=== PATIENT | female | born 1980 | race Caucasian/White ===

== ENCOUNTER 2017-12-06 12:25 | Outpatient (CLI) | payer BC ==
[2017-12-06] MEDS ORDERED: BETAMET ACET-BETAMETH SOD PHOS 6 MG/ML VIAL IM SCH (13:00)
[2017-12-06 13:31] VITALS: BP 121/64; PULSE 100; RESP 16; TEMP 97.5
--- NOTE | 2017-12-07 11:21 | P.MSEPDOC ---
Presenting Problems - Arrival Data Date of Arrival on Unit: 12/06/17 Time of Arrival on Unit: 12:30 Mode of Transport: Ambulatory - Complaint OB-Reason for Admission/Chief Complaint: Other Comment: repeat celestone shot Medical History - Information : 3 Para: 2 Term: 2 : 0 Abortions: Spontaneous or Elective: 0 Number of Living Children: 2 - Gestational Age Gestational Age by GABBI (wks/days): 35 Weeks and 5 Days - History Complications: Other Comment: baby with cardiac issues. deliverying at [facility] Review of Systems - Review of Systems Constitutional: No problems Breast: No problems ENT: No problems Cardiovascular: No problems Respiratory: No problems Gastrointestinal: No problems Genitourinary: No problems Musculoskeletal: No problems Neurological: No problems Skin: No problems Vital Signs - Temperature Temperature: 97.5 F Temperature Source: Tympanic - Pulse Right Radial Pulse Rate: 100 Pulse Assessment Method: Automatic Cuff - Respirations Respiratory Rate: 16 Oxygen Delivery Method: Room Air - Blood Pressure Right Arm Blood Pressure: 121/64 Blood Pressure Mean: 83 Blood Pressure Source: Automatic Cuff Medical Screen Scoring (Pre) - Cervical Exam Dilation: Exam Deferred - Uterine Contractions Frequency: N/A - Maternal Vital Signs Maternal Temperature: N/A Maternal Blood Pressure: N/A Signs of Preeclampsia: N/A Maternal Respirations: N/A - Pain Assessment Pain Scale Used: Numeric (1 - 10) Pain Intensity: 0 - Maternal Trauma Maternal Trauma: N/A - Assessment Baseline FHR: 125 Heart Rate - NICHD Category: Category I (Normal) = 0 NST: Reactive Position: N/A Station: N/A - Total Score Total Score (Pre): 0 - Level of Risk Level of Risk: N/A Physician Notification (Pre) - Physician Notified Physician Notified Date: 12/06/17 Physician Notified Time: 13:00 Physician/Practitioner Notifed:: cherelle Spoke With: cherelle New Order Received: Yes (discharge) Disposition - Disposition OB Disposition: Discharge to home, Written follow up instructions reviewed Discharge Date: 12/06/17 Discharge Time: 13:05 I agree with the RN Medical Screening Exam: Yes Risk & Benefit of care provided described in d/c instruction: Yes Diagnosis: ENCOUNTER FOR SCREENING FOR CONGENITAL CARDIAC ABNLT
== END 2017-12-06 13:05 | disposition home or self-care (01) ==
LOC: FBPOP 12:25
PROVIDERS: ATTEND Obstetrics & Gynecology
DX: Z36.83 Encounter for fetal screening for congenital cardiac abnormalities (principal); Z3A.35 35 weeks gestation of pregnancy
CPT/HCPCS: 59025; 99213; 96372; J0702

== ENCOUNTER → 2017-12-10 | Outpatient (CLI) | payer BC ==
[2017-12-10 09:56] LABS: HCT 34.4 % (34.0-46.0); HGB 11.3 gm/dL (11.4-16.0); MCH 29.3 pg (25.0-35.0); MCHC 32.8 g/dL (31.0-37.0); MCV 89.3 fL (80.0-100.0); Platelet Count 298 k/uL (150-450); RBC 3.86 m/uL (3.80-5.40); RDW 14.4 % (11.5-15.5); WBC 9.6 k/uL (3.8-10.6)
[2017-12-10 17:19] LABS: HIV AB P24 Non-Reactive (Non-Reactive); HIV P24 AG Non-Reactive (Non-Reactive)
== END | disposition home or self-care (01) ==
LOC: LABWHC1 09:11
PROVIDERS: ATTEND Obstetrics & Gynecology
DX: O26.813 Pregnancy related exhaustion and fatigue, third trimester (principal); Z3A.00 Weeks of gestation of pregnancy not specified
CPT/HCPCS: 36415; 85027; 87390

== ENCOUNTER → 2018-01-27 | Outpatient (CLI) | payer BC ==
[2018-01-27 09:38] LABS: Basophils % (A) 0 %; Eosinophils # (A) 0.2 k/uL (0-0.7); Eosinophils % (A) 3 %; HGB 11.7 gm/dL (11.4-16.0); Lymphocytes # (A) 1.1 k/uL (1.0-4.8); Lymphocytes % (A) 18 %; MCH 28.2 pg (25.0-35.0); MCHC 31.7 g/dL (31.0-37.0); Mean Platelet Volume 7.2; Monocytes # (A) 0.2 k/uL (0-1.0); Monocytes % (A) 4 %; Neutrophils # (A) 4.6 k/uL (1.3-7.7); Neutrophils % (A) 74 %; Platelet Count 260 k/uL (150-450); RBC 4.16 m/uL (3.80-5.40); RDW 13.6 % (11.5-15.5); WBC 6.2 k/uL (3.8-10.6)
== END | disposition home or self-care (01) ==
LOC: LABPAT 08:51
PROVIDERS: ATTEND Obstetrics & Gynecology
DX: Z01.812 Encounter for preprocedural laboratory examination (principal)
CPT/HCPCS: 36415; 85025

== ENCOUNTER 2018-02-03 06:02 | Day surgery (SDC) | payer BC ==
[2018-01-30 15:26] VITALS: BMI 36.3
--- NOTE | 2018-02-02 20:19 | P.HPOB ---
History of Present Illness H&P Date: 02/02/18 Chief Complaint: Family planning This is a 37-year-old female 3 para 3 who presents for laparoscopic bilateral tubal ligation via fulguration. She recently delivered her last child vaginally. She has consented to laparoscopic bilateral tubal ligation via fulguration. Obstetrical history: . History of 3 vaginal deliveries. Gynecologic history: No history of sexually transmitted diseases. Social history: She is . 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 Review of Systems Constitutional: Denies chills, Denies fever Eyes: denies blurred vision, denies pain Ears, nose, mouth and throat: Denies headache, Denies sore throat Cardiovascular: Denies chest pain, Denies shortness of breath Respiratory: Denies cough Gastrointestinal: Denies abdominal pain, Denies diarrhea, Denies nausea, Denies vomiting Genitourinary: Denies dysuria, Denies hematuria Musculoskeletal: Denies myalgias Integumentary: Denies pruritus, Denies rash Neurological: Denies numbness, Denies weakness Psychiatric: Denies anxiety, Denies depression Endocrine: Denies fatigue, Denies weight change Past Medical History Past Medical History: No Reported History History of Any Multi-Drug Resistant Organisms: None Reported Past Surgical History: Appendectomy Additional Past Surgical History / Comment(s): KIDNEY STONE -REMOVED Additional Past Anesthesia/Blood Transfusion Reaction / Comment(s): "STATES FELT SHORT OF BREATH WHEN SHE WOKE UP" Past Psychological History: No Psychological Hx Reported Smoking Status: Former smoker Past Alcohol Use History: None Reported Past Drug Use History: None Reported - Past Family History Mother Family Medical History: No Reported History Medications and Allergies Home Medications Medication Instructions Recorded Confirmed Type Acetaminophen [Tylenol] 325 mg PO Q4H PRN 12/06/17 01/30/18 History Cholecalciferol (Vitamin D3) 2,000 unit PO PC-BRKFST 12/06/17 01/30/18 History [Vitamin D3] Control Pill-28 Unknown 1 tab PO HS 01/30/18 History Allergies Allergy/AdvReac Type Severity Reaction Status Date / Time cephalexin Allergy Anaphylaxis Verified 01/30/18 13:46 Penicillins Allergy Anaphylaxis Verified 01/30/18 13:46 Exam Osteopathic Statement: *. No significant issues noted on an osteopathic structural exam other than those noted in the History and Physical/Consult. HEENT: Within normal limits Heart: Regular rate and rhythm Lungs: Clear to auscultation bilaterally Abdomen: Soft, nontender Pelvic exam: Uterus is anteverted, nontender, with no adnexal masses or tenderness noted. Extremities: Negative Homans Assessment and Plan (1) Family planning Status: Acute Code(s): Z30.09 - ENCOUNTER FOR OT GENERAL CNSL AND ADVICE ON CONTRACEPTION SNOMED Code(s): 170351030 Plan: Proceed with laparoscopic bilateral tubal ligation via fulguration. I have discussed the risks, benefits, and alternative therapies for the above- mentioned procedure and for both sedation/anesthesia as well as necessary blood products administration, if indicated, as they pertain to this patient. The patient has indicated her understanding and acceptance of the risks and procedures discussed.
[~2018-02-03 06:02] MED LIST: DEXAMETHASONE SOD PHOSPHATE 10 MG/ML 1 ML VIAL IV ONE; LACTATED RINGERS 1,000 ML IV SCH; MIDAZOLAM 2 MG/2 ML VIAL IV PRN; ONDANSETRON 4 MG/2 ML VIAL IVP ONE; Pre Op ABX Message 1 EACH MISC MISCELLANE ONE; SCOPOLAMINE 1.5MG/72HR PATCH TRANSDERM ONE
[2018-02-03] MEDS ORDERED: LIDOCAINE 1% 20 ML VIAL (10MG/ML) FOR IV START INTRADERMA ONE (06:45)
[2018-02-03] MEDS ORDERED: ROCURONIUM BROMIDE 10 MG/ML 10 ML VIAL IV ONE (07:29)
[2018-02-03] MEDS ORDERED: ACETAMINOPHEN IV (For NPO) 1,000 MG/100 ML VIAL ONE (07:29)
[2018-02-03] MEDS ORDERED: LIDOCAINE 1% INJ 10MG/ML (20 ML MDV) ONE (07:29)
[2018-02-03] MEDS ORDERED: MIDAZOLAM 2 MG/2 ML VIAL ONE (07:29)
[2018-02-03] MEDS ORDERED: BUPIVACAINE (PF) 0.25% 30 ML VIAL SQ ONE (07:29)
[2018-02-03] MEDS ORDERED: PROPOFOL 10 MG/ML 20 ML VIAL IV ONE (07:29)
[2018-02-03] MEDS ORDERED: SUCCINYLCHOLINE CHLORIDE 100 MG/5 ML SYR IV ONE (07:29)
[2018-02-03] MEDS ORDERED: fentaNYL (PF) 50 MCG/ML 2 ML AMP ONE (07:29)
[2018-02-03] MEDS ORDERED: NEOSTIGMINE 1 MG/ML 10 ML VIAL ONE (07:29)
[2018-02-03] MEDS ORDERED: GLYCOPYRROLATE 0.2 MG/ML 2 ML VIAL ONE (07:29)
[2018-02-03] MEDS ORDERED: HYDROmorphone (PF) 1 MG/ML ONE (07:29)
[2018-02-03] MEDS ORDERED: KETOROLAC 30 MG/ML 1 ML VIAL ONE (07:29)
--- NOTE | 2018-02-03 08:08 | P.OP ---
Date of Procedure: 02/03/18 Preoperative Diagnosis: Family planning Postoperative Diagnosis: Same Procedure(s) Performed: Laparoscopic bilateral tubal ligation via fulguration Anesthesia: LINNEA Surgeon: Amanda Gonzalez Estimated Blood Loss (ml): 5 Pathology: none sent Condition: stable Disposition: same day Indications for Procedure: This is a 37-year-old female 3 para 3 who presents for laparoscopic bilateral tubal ligation via fulguration. She recently delivered her last child vaginally. She has consented to laparoscopic bilateral tubal ligation via fulguration. Operative Findings: Uterus is anteverted and sounded to 9 cm. Normal uterus tubes and ovaries are noted. There are noted to be some adhesions above the liver edge. Description of Procedure: The patient is taken to the operating room where she is placed in the dorsal lithotomy position. She is prepped and draped in the normal sterile fashion. Examination is performed under anesthesia. Uterus is found to be in a anteverted position. No adnexal masses were palpated. Next a bivalve speculum was placed in the patient's vagina. A single-tooth tenaculum was used to grasp the anterior lip of the cervix. The uterus was sounded to 9 cm. The kroner uterine manipulator was then inserted through the cervix and the balloon was inflated. The single-tooth tenaculum is removed speculum was removed gloves were changed and attention was turned to the abdomen. The infraumbilical fold was grasped in transverse fashion with 2 Allis clamps. A small transverse incision was made with a scalpel. A hemostat was used to carry the incision down to the underlying layer of fascia. A towel clip was placed above the umbilicus for retraction. A 11 mm disposable bladeless trocar was then inserted into the peritoneal cavity under direct visualization. The towel clip did slip off one time and did scratch her skin superficially. The towel clip was replaced with a new towel clip. Once inside, pneumoperitoneum was achieved with CO2 gas. The insert was removed and the camera was placed. Intraperitoneal placement was confirmed. No bleeding was noted. Next the patient was placed in Trendelenburg position. A small stab incision was made suprapubically and a 5 mm disposable bladeless trocar was inserted into the peritoneal cavity under direct visualization. Once inside pelvic contents were inspected. Next a bipolar Kleppinger instrument was placed through the inferior trocar and the midportion of each tube was brought away from other structures and completely fulgurated on approximate 2-3 cm segment of each tube. Excellent hemostasis was noted. A picture was taken. There were also noted to be some adhesions above the liver edge. A picture of this was taken. Pneumoperitoneum was released after the inferior trocar was removed under direct visualization. The upper trocar was then removed. The fascial incision was closed with 0 Vicryl suture in interrupted [id number] stitch. The skin incisions were then closed with 4-0 Vicryl suture in a subcuticular fashion. Incision sites were injected with quarter percent Marcaine. Bacitracin ointment was placed on the scratch above her umbilicus and a Band- Aid was placed. Next the kroner uterine manipulator was removed. Minimal bleeding was noted. All sponge and needle counts are correct. The patient is then taken to recovery room in stable condition.
[2018-02-03 08:26] VITALS: TEMP 97.9
[2018-02-03] MEDS: MORPHINE SULFATE 4 MG/ML SYRINGE IV PRN ×2 (08:34→08:42)
[2018-02-03] MEDS: MEPERIDINE 50 MG/ML SYRINGE IVP ONE ×2 (08:47→08:56)
[2018-02-03 09:16] VITALS: RESP 18
[2018-02-03] MEDS ORDERED: Acetaminophen-Codeine 300-30mg TAB PO ONE (09:36)
[2018-02-03 11:13] VITALS: BP 115/57; PULSE 80
== END 2018-02-03 12:00 | disposition home or self-care (01) ==
LOC: OR 06:02
PROVIDERS: ATTEND Obstetrics & Gynecology
DX: Z30.2 Encounter for sterilization (principal); Z79.3 Long term (current) use of hormonal contraceptives; Z88.1 Allergy status to other antibiotic agents; Z88.0 Allergy status to penicillin
CPT/HCPCS: 81025; 58670; J2250; J2270; J1100; J2710; J2175; J2405; J2001; J3010; J1885; J1170; J0131; J0330; J2704

== ENCOUNTER 2018-02-04 03:28 | Emergency (ER) | payer BC ==
[2018-02-04] MEDS ORDERED: MORPHINE SULFATE 4 MG/ML SYRINGE IV STA ×2 (04:22→05:39)
[2018-02-04 04:50] LABS: Basophils % (A) 0 %; Eosinophils % (A) 0 %; HCT 34.7 % (34.0-46.0); HGB 11.2 gm/dL (11.4-16.0); Lymphocytes # (A) 1.4 k/uL (1.0-4.8); Lymphocytes % (A) 14 %; MCHC 32.2 g/dL (31.0-37.0); MCV 86.9 fL (80.0-100.0); Mean Platelet Volume 7.5; Monocytes # (A) 0.4 k/uL (0-1.0); Monocytes % (A) 4 %; Neutrophils # (A) 8.3 k/uL (1.3-7.7); Neutrophils % (A) 81 %; Platelet Count 286 k/uL (150-450); RBC 3.99 m/uL (3.80-5.40); WBC 10.3 k/uL (3.8-10.6)
[2018-02-04 05:09] LABS: Appearance,Urine Cloudy (Clear); Bacteria,Urine Rare /hpf; Bilirubin,Urine Negative (Negative); Blood,Urine Large (Negative); Color,Urine Light Red; Glucose,Urine (UA) Negative (Negative); Ketones,Urine Negative (Negative); Leukocyte Esterase,Urine Moderate (Negative); Mucus,Urine Rare /hpf; PH, Urine 5.5 (5.0-8.0); Protein,Urine Trace (Negative); RBC,Urine >182 /hpf (0-5); Specific Gravity,Urine 1.012 (1.001-1.035); Squamous Epithelial Cell,Urine 10 /hpf (0-4); Urobilinogen,Urine <2.0 mg/dL (<2.0); WBC,Urine 26 /hpf (0-5)
[2018-02-04 05:11] LABS: ALT 36 U/L (9-52); AST 18 U/L (14-36); Alkaline Phosphatase 86 U/L (38-126); Amylase 41 U/L (30-110); Anion Gap 10 mmol/L; Blood Urea Nitrogen 12 mg/dL (7-17); Calcium 9.7 mg/dL (8.4-10.2); Carbon Dioxide 25 mmol/L (22-30); Chloride 104 mmol/L (98-107); Glucose 110 mg/dL (74-99); Lipase 63 U/L (23-300); Potassium 3.8 mmol/L (3.5-5.1); Sodium 139 mmol/L (137-145); Total Bilirubin 0.2 mg/dL (0.2-1.3); Total Protein 7.1 g/dL (6.3-8.2)
--- NOTE | 2018-02-04 05:22 | XR ---
EXAM: XR Abdomen, 1 View CLINICAL HISTORY: ITS.REASON XR Reason: abdominal pain TECHNIQUE: Frontal supine view of the abdomen/pelvis. COMPARISON: None. FINDINGS: Lower thorax: Findings most compatible with free intraperitoneal air under the right hemidiaphragm. Gastrointestinal tract: Unremarkable. No dilation. Bones/joints: Unremarkable. IMPRESSION: Findings most compatible with free intraperitoneal air under the right hemidiaphragm. Confirmation with CT advised. [employer] 02/04/18 05:25 Call Doctor Regarding Bowel Perforation with Free Air, called Dr. Burroughs on 02/04 05:24 (-05:00)
--- NOTE | 2018-02-04 07:20 | ED ---
Abdominal Pain HPI - General Chief Complaint: Abdominal Pain Stated Complaint: post op pain Time Seen by Provider: 02/04/18 03:48 Source: patient Mode of arrival: ambulatory Limitations: no limitations - History of Present Illness Initial Comments: This patient is a 37-year-old woman who presents to be evaluated for abdominal pain going on for the past day. The patient states that she had a tubal ligation is today with Dr. Gonzalez. She went home and states that she never really was feeling much better. She states she had previous laparoscopic surgery for appendix and it just didn't causes same kind of pain as this. She states she has not been able to sleep for most tonight and as she was not having relief with home medicines presents here. Patient denies fever or chills , dyspnea, headache, neck, or chest pain. No change in urination. MD Complaint: abdominal pain Onset/Timin -: days(s) Location: diffuse Radiation: back Migration to: no migration Severity: severe - Related Data Home Medications Medication Instructions Recorded Confirmed Cholecalciferol (Vitamin D3) 2,000 unit PO PC-BRKFST 12/06/17 02/04/18 [Vitamin D3] Control Pill-28 Unknown 1 tab PO HS 01/30/18 02/04/18 Previous Rx's Medication Instructions Recorded Acetaminophen-Codeine 300-30mg 1 tab PO Q4H PRN #20 tablet 02/03/18 [Tylenol #3] Allergies Allergy/AdvReac Type Severity Reaction Status Date / Time cephalexin Allergy Anaphylaxis Verified 02/03/18 06:29 Penicillins Allergy Anaphylaxis Verified 02/03/18 06:29 Review of Systems ROS Statement: Those systems with pertinent positive or pertinent negative responses have been documented in the HPI. ROS Other: All systems not noted in ROS Statement are negative. Constitutional: Denies: fever, chills, weakness Respiratory: Denies: cough, dyspnea Cardiovascular: Denies: chest pain, palpitations, edema, syncope Gastrointestinal: Reports: abdominal pain. Denies: nausea, vomiting, diarrhea Genitourinary: Denies: dysuria, hematuria Musculoskeletal: Reports: back pain Skin: Denies: rash Neurological: Denies: headache, weakness Past Medical History Past Medical History: No Reported History History of Any Multi-Drug Resistant Organisms: None Reported Past Surgical History: Appendectomy, Tubal Ligation Additional Past Surgical History / Comment(s): Kidney stone removal Past Psychological History: No Psychological Hx Reported Smoking Status: Former smoker Past Alcohol Use History: None Reported Past Drug Use History: None Reported General Exam Limitations: no limitations General appearance: alert, in no apparent distress Head exam: Present: atraumatic, normocephalic Eye exam: Present: normal appearance. Absent: scleral icterus, conjunctival injection ENT exam: Present: normal oropharynx Neck exam: Present: normal inspection, full ROM Respiratory exam: Present: normal lung sounds bilaterally. Absent: respiratory distress, wheezes, rales, rhonchi, stridor Cardiovascular Exam: Present: regular rate, normal rhythm, normal heart sounds. Absent: systolic murmur, diastolic murmur, rubs, gallop GI/Abdominal exam: Present: soft, tenderness (There is mild lower abdominal tenderness without rebound or guarding.), normal bowel sounds. Absent: distended, guarding, rebound, rigid, mass, pulsatile mass, hernia Extremities exam: Present: normal inspection, normal capillary refill. Absent: pedal edema, calf tenderness Back exam: Present: normal inspection. Absent: CVA tenderness (R), CVA tenderness (L) Neurological exam: Present: alert, normal gait Skin exam: Present: warm, dry, intact, normal color. Absent: rash Course Vital Signs 02/04/18 02/04/18 03:29 07:40 Temperature 98.2 F 98.1 F Pulse Rate 71 52 L Respiratory 20 18 Rate Blood Pressure 147/73 138/65 O2 Sat by Pulse 98 97 Oximetry Medical Decision Making - Medical Decision Making Patient's 37-year-old woman with postoperative pain following a tubal ligation. She is improved following the medications. I did discuss the patient's case with Dr. Gonzalez, who will see the patient follow-up. We discussed appropriate further care and return parameters and all questions answered. - Lab Data Result diagrams: 02/04/18 04:35 02/04/18 04:35 Lab Results 02/04/18 02/04/18 02/04/18 Range/Units 04:35 04:35 04:35 WBC 10.3 (3.8-10.6) k/uL RBC 3.99 (3.80-5.40) m/uL Hgb 11.2 L (11.4-16.0) gm/dL Hct 34.7 (34.0-46.0) % MCV 86.9 (80.0-100.0) fL MCH 28.0 (25.0-35.0) pg MCHC 32.2 (31.0-37.0) g/dL RDW 14.0 (11.5-15.5) % Plt Count 286 (150-450) k/uL Neutrophils % 81 % Lymphocytes % 14 % Monocytes % 4 % Eosinophils % 0 % Basophils % 0 % Neutrophils # 8.3 H (1.3-7.7) k/uL Lymphocytes # 1.4 (1.0-4.8) k/uL Monocytes # 0.4 (0-1.0) k/uL Eosinophils # 0.0 (0-0.7) k/uL Basophils # 0.0 (0-0.2) k/uL Sodium 139 (137-145) mmol/L Potassium 3.8 (3.5-5.1) mmol/L Chloride 104 (98-107) mmol/L Carbon Dioxide 25 (22-30) mmol/L Anion Gap 10 mmol/L BUN 12 (7-17) mg/dL Creatinine 0.60 (0.52-1.04) mg/dL Est GFR (CKD-EPI)AfAm >90 (>60 ml/min/1.73 sqM) Est GFR (CKD-EPI)NonAf >90 (>60 ml/min/1.73 sqM) Glucose 110 H (74-99) mg/dL Calcium 9.7 (8.4-10.2) mg/dL Total Bilirubin 0.2 (0.2-1.3) mg/dL AST 18 (14-36) U/L ALT 36 (9-52) U/L Alkaline Phosphatase 86 (38-126) U/L Total Protein 7.1 (6.3-8.2) g/dL Albumin 4.0 (3.5-5.0) g/dL Amylase 41 (30-110) U/L Lipase 63 (23-300) U/L Urine Color Light Red Urine Appearance Cloudy H (Clear) Urine pH 5.5 (5.0-8.0) Ur Specific [place] 1.012 (1.001-1.035) Urine Protein Trace H (Negative) Urine Glucose (UA) Negative (Negative) Urine Ketones Negative (Negative) Urine Blood Large H (Negative) Urine Nitrite Negative (Negative) Urine Bilirubin Negative (Negative) Urine Urobilinogen <2.0 (<2.0) mg/dL Ur Leukocyte Esterase Moderate H (Negative) Urine RBC >182 H (0-5) /hpf Urine WBC 26 H (0-5) /hpf Ur Squamous Epith Cells 10 H (0-4) /hpf Urine Bacteria Rare H (None) /hpf Urine Mucus Rare H (None) /hpf Disposition Clinical Impression: Abdominal pain Disposition: HOME SELF-CARE Condition: Fair Instructions: Abdominal Pain (ED) Referrals: Nonstaff,Physician [Primary Care Provider] - 1-2 days Amanda Gonzalez DO [Doctor of Osteopathic Medicine] - 1-2 days
[2018-02-04] MEDS ORDERED: SIMETHICONE 40 MG/0.6 ML DROPS 2,000 MG/30 ML BOTTLE PO STA (07:30)
[2018-02-04 07:42] VITALS: BP 138/65; PULSE 52; RESP 18; TEMP 98.1
[2018-02-04] MEDS ORDERED: SIMETHICONE 40 MG/0.6 ML DROPS 2,000 MG/30 ML BOTTLE PO SCH (08:30)
[2018-02-04] MEDS ORDERED: KETOROLAC 30 MG/ML 1 ML VIAL IVP SCH (12:00)
== END 2018-02-04 08:07 | disposition home or self-care (01) ==
LOC: EC 03:28
DX: R10.9 Unspecified abdominal pain (principal); G89.18 Other acute postprocedural pain; Z90.49 Acquired absence of other specified parts of digestive tract; Z98.51 Tubal ligation status; Z87.891 Personal history of nicotine dependence; Z79.3 Long term (current) use of hormonal contraceptives; Z88.1 Allergy status to other antibiotic agents; Z88.0 Allergy status to penicillin
CPT/HCPCS: 36415; 80053; 82150; 83690; 85025; 81001; 74018; 99284; 96374; 96375; 96376; J2270; J1885

== ENCOUNTER 2018-04-09 20:40 | Emergency (ER) | payer BC ==
[2018-04-09 20:46] VITALS: BP 146/73; PULSE 90; RESP 16; TEMP 97.9
--- NOTE | 2018-04-09 21:35 | ED ---
General Adult HPI - General Chief complaint: Back Pain/Injury Stated complaint: back pain Time Seen by Provider: 04/09/18 20:57 Source: patient, RN notes reviewed Mode of arrival: ambulatory Limitations: no limitations - History of Present Illness Initial comments: 37-year-old female presents to the emergency department for a chief complaint of chronic low back pain. Patient states the pain has been somewhat worse for the past week. Patient denies any injuries. Patient states she is out of her [place] and that is why she is here. She states that she had a baby and has not had a prescription of [place] for a year. She states she has stopped breast- feeding now and wants a prescription. She states she cannot get into her doctor for 3 weeks. Patient states she went to urgent care and was given a steroid but they refused to prescribe narcotics. Patient then presented to the ER for pain prescription. Patient denies bladder or bowel changes. Patient denies saddle anesthesia or pain radiating down her legs. She states the pain is mostly in the left lower back. patient states she has had multiple x-rays and does not need one today. Patient has no other complaints at this time including shortness of breath, chest pain, abdominal pain, nausea or vomiting, headache, or visual changes. - Related Data Home Medications Medication Instructions Recorded Confirmed Acetaminophen [Tylenol Extra 1,000 mg PO Q6H PRN 04/09/18 04/09/18 Strength] Beyaz-28 1 tab PO HS 04/09/18 04/09/18 Ergocalciferol (Vitamin D2) 50,000 unit PO BEAVERS 04/09/18 04/09/18 [Vitamin D2] Ibuprofen [Motrin Ib] 600 mg PO Q6H PRN 04/09/18 04/09/18 Allergies Allergy/AdvReac Type Severity Reaction Status Date / Time cephalexin Allergy Anaphylaxis Verified 04/09/18 21:02 Penicillins Allergy Anaphylaxis Verified 04/09/18 21:02 Review of Systems ROS Statement: Those systems with pertinent positive or pertinent negative responses have been documented in the HPI. ROS Other: All systems not noted in ROS Statement are negative. Past Medical History Past Medical History: No Reported History History of Any Multi-Drug Resistant Organisms: None Reported Past Surgical History: Appendectomy, Tubal Ligation Additional Past Surgical History / Comment(s): Kidney stone removal Past Psychological History: No Psychological Hx Reported Smoking Status: Former smoker Past Alcohol Use History: None Reported Past Drug Use History: None Reported General Exam Limitations: no limitations General appearance: alert, in no apparent distress Eye exam: Present: normal appearance, PERRL, EOMI. Absent: scleral icterus, conjunctival injection, periorbital swelling Respiratory exam: Present: normal lung sounds bilaterally. Absent: respiratory distress, wheezes, rales, rhonchi, stridor Cardiovascular Exam: Present: regular rate, normal rhythm, normal heart sounds. Absent: systolic murmur, diastolic murmur, rubs, gallop, clicks Back exam: Present: tenderness (Lower left paraspinal tenderness.), paraspinal tenderness (Left sided lower paraspinal tenderness.). Absent: full ROM (60 flexion and full extension.), CVA tenderness (R), CVA tenderness (L), vertebral tenderness (No vertebral tenderness from neck down through lumbar spine.) Neurological exam: Present: alert, oriented X3, CN II-XII intact Psychiatric exam: Present: normal affect, normal mood Course Vital Signs 04/09/18 20:43 Temperature 97.9 F Pulse Rate 90 Respiratory 16 Rate Blood Pressure 146/73 O2 Sat by Pulse 94 L Oximetry Medical Decision Making - Medical Decision Making 37-year-old female presents to the emergency department for a chief complaint of chronic back pain for which she is seeking a pain prescription. Patient takes [place]. She had a baby so has not had a prescription and a year but would like to start taking it. She states her back pain has worsened in the past 1.5 weeks. Denies any injury. She has been imaged multiple times. Patient states she is taking Motrin and Tylenol and is not helping. She has a appointment in 3 weeks scheduled with her doctor. Patient states she takes [place] and is here for a [place] prescription. She went to urgent care but they would not prescribe it. Patient denies any bladder or bowel changes. Patient denies any numbness or tingling in the legs. On exam patient has 60 of flexion and full extension. No spinal tenderness. Patient does have some left lower paraspinal tenderness. Patient was told that we could not give her a prescription of [place] or any other narcotics. She already has a prescription of steroids from urgent care. I offered to give her a shot of Toradol but she did not want that. Patient will follow up with primary care provider. She will return if symptoms worsen. Disposition Clinical Impression: Chronic back pain Disposition: HOME SELF-CARE Condition: Good Instructions: Chronic Back Pain (ED) Additional Instructions: Please continue to take Motrin and Tylenol for pain relief. Continue steroid. Contact your primary care provider and follow up in 1-2 days. Otherwise return to the emergency department if symptoms worsen. Is patient prescribed a controlled substance at d/c from ED?: No Referrals: Slade Bingham MD [Primary Care Provider] - 1-2 days Time of Disposition: 21:35
== END 2018-04-09 21:39 | disposition home or self-care (01) ==
LOC: EC 20:40
DX: G89.29 Other chronic pain (principal); M54.5 Low back pain; Z87.891 Personal history of nicotine dependence; Z79.899 Other long term (current) drug therapy; Z88.0 Allergy status to penicillin; Z88.1 Allergy status to other antibiotic agents
CPT/HCPCS: 99283

== ENCOUNTER → 2018-08-12 | Outpatient (CLI) | payer BC ==
--- NOTE | 2018-08-12 15:18 | US ---
EXAMINATION TYPE: US pelvic complete DATE OF EXAM: 08/12/2018 COMPARISON: NONE CLINICAL HISTORY: 37-year-old female N92.1 Excessive and frequent menstruation. TECHNIQUE: Transabdominal sonographic images of the pelvis were acquired. Date of LMP: 08-07-18 FINDINGS: EXAM MEASUREMENTS: Uterus: 11.4 x 4.3 x 4.6 cm Endometrial Stripe: 0.5 cm Right Ovary: 2.9 x 2.1 x 2.1 cm Left Ovary: 2.6 x 2.1 x 2.1 cm Follicular change in both ovaries. 1. Uterus: Slightly prominent in size, anteverted. No focal fibroid identified. 2. Endometrium: wnl 3. Right Ovary: wnl 4. Left Ovary: wnl 5. Bilateral Adnexa: wnl 6. Posterior cul-de-sac: wnl IMPRESSION: Follicular change in both ovaries. Uterine measurement is slightly prominent. No pelvic free fluid. T hin endometrial stripe.
[2018-08-12 15:35] LABS: T4, Free (Free Thyroxine) 0.98 ng/dL (0.78-2.19)
== END | disposition home or self-care (01) ==
LOC: RADUSWWP 14:28
PROVIDERS: ATTEND Obstetrics & Gynecology
DX: N92.1 Excessive and frequent menstruation with irregular cycle (principal)
CPT/HCPCS: 76856; 84439; 84443

== ENCOUNTER → 2018-10-26 | Outpatient (CLI) | payer BC ==
[2018-10-26 09:16] LABS: Basophils % (A) 0 %; Eosinophils # (A) 0.1 k/uL (0-0.7); Eosinophils % (A) 3 %; Lymphocytes # (A) 1.3 k/uL (1.0-4.8); Lymphocytes % (A) 21 %; MCH 29.4 pg (25.0-35.0); MCHC 33.3 g/dL (31.0-37.0); MCV 88.2 fL (80.0-100.0); Mean Platelet Volume 6.9; Monocytes # (A) 0.2 k/uL (0-1.0); Monocytes % (A) 4 %; Neutrophils # (A) 4.2 k/uL (1.3-7.7); Neutrophils % (A) 71 %; Platelet Count 212 k/uL (150-450); RBC 4.76 m/uL (3.80-5.40); RDW 13.6 % (11.5-15.5); WBC 5.9 k/uL (3.8-10.6)
[2018-10-26 09:23] LABS: ALT 20 U/L (9-52); AST 14 U/L (14-36); Albumin 4.4 g/dL (3.5-5.0); Albumin/Globulin Ratio 1.3; Alkaline Phosphatase 73 U/L (38-126); Anion Gap 7 mmol/L; Blood Urea Nitrogen 14 mg/dL (7-17); Calcium 9.4 mg/dL (8.4-10.2); Carbon Dioxide 25 mmol/L (22-30); Chloride 108 mmol/L (98-107); Cholesterol 218 mg/dL (<200); Globulin 3.3 g/dL; Glucose 97 mg/dL (74-99); HDL Cholesterol 50 mg/dL (40-60); LDL Cholesterol,Calculated 150 mg/dL (0-99); Potassium 4.6 mmol/L (3.5-5.1); Sodium 140 mmol/L (137-145); Total Bilirubin 0.5 mg/dL (0.2-1.3); Total Protein 7.7 g/dL (6.3-8.2); Triglycerides 91 mg/dL (<150)
[2018-10-26 09:38] LABS: T4, Free (Free Thyroxine) 1.04 ng/dL (0.78-2.19)
[2018-10-26 17:13] LABS: Hemoglobin A1C 5.1 % (4.0-6.0)
== END | disposition home or self-care (01) ==
LOC: LABWHC1 08:36
PROVIDERS: ATTEND Family Medicine
DX: I10 Essential (primary) hypertension (principal); Z79.899 Other long term (current) drug therapy
CPT/HCPCS: 36415; 80053; 80061; 83036; 84439; 84443; 85025

== ENCOUNTER → 2018-11-25 | Outpatient (CLI) | payer BC ==
--- NOTE | 2018-11-25 11:00 | XR ---
EXAMINATION TYPE: XR knee complete RT DATE OF EXAM: 11/25/2018 CLINICAL HISTORY: Chronic right knee pain. TECHNIQUE: Three views of the right knee are obtained. COMPARISON: None. FINDINGS: There is no acute fracture/dislocation evident in right knee. Tibial condylar spurring is present. There is mild narrowing and spurring patellofemoral compartment. Mild narrowing medial tibio femoral compartment is also noted. The overlying soft tissue appears unremarkable. IMPRESSION: As above.
== END | disposition home or self-care (01) ==
LOC: RADXRMAIN 10:04
PROVIDERS: ATTEND Family Medicine
DX: M25.761 Osteophyte, right knee (principal); M25.861 Other specified joint disorders, right knee

== ENCOUNTER 2018-12-26 20:00 | Emergency (ER) | payer BC ==
[2018-12-27 04:40] LABS: Creatine Kinase 130 U/L (30-135); Creatine Kinase MB 0.9 ng/mL (0.0-2.4); Troponin I <0.012 ng/mL (0.000-0.034)
[2018-12-27 04:41] LABS: ALT 21 U/L (9-52); AST 16 U/L (14-36); Albumin 3.8 g/dL (3.5-5.0); Alkaline Phosphatase 62 U/L (38-126); Anion Gap 8 mmol/L; Blood Urea Nitrogen 9 mg/dL (7-17); Carbon Dioxide 25 mmol/L (22-30); Chloride 106 mmol/L (98-107); Glucose 90 mg/dL (74-99); Potassium 3.9 mmol/L (3.5-5.1); Sodium 139 mmol/L (137-145); Total Bilirubin 0.3 mg/dL (0.2-1.3); Total Protein 6.7 g/dL (6.3-8.2)
[2018-12-27 07:13] LABS: Basophils % (A) 1 %; Eosinophils # (A) 0.2 k/uL (0-0.7); Eosinophils % (A) 3 %; HCT 38.4 % (34.0-46.0); HGB 12.2 gm/dL (11.4-16.0); Lymphocytes # (A) 1.8 k/uL (1.0-4.8); Lymphocytes % (A) 26 %; MCH 28.9 pg (25.0-35.0); MCHC 31.7 g/dL (31.0-37.0); MCV 91.3 fL (80.0-100.0); Mean Platelet Volume 7.1; Monocytes # (A) 0.3 k/uL (0-1.0); Monocytes % (A) 5 %; Neutrophils # (A) 4.6 k/uL (1.3-7.7); Neutrophils % (A) 65 %; Platelet Count 223 k/uL (150-450); RBC 4.21 m/uL (3.80-5.40); WBC 7.1 k/uL (3.8-10.6)
--- NOTE | 2018-12-27 09:32 | XR ---
EXAMINATION TYPE: Chest 2 views DATE OF EXAM: 12/26/2018 COMPARISON: None HISTORY: 38-year-old female with chest pain FINDINGS: Heart normal size. Aorta and pulmonary vasculature within normal limits. Mild interstitial prominence as a chronic appearance. No consolidation or pleural effusion. IMPRESSION: Chronic appearing changes. No acute process seen.
== END 2018-12-27 02:40 | disposition home or self-care (01) ==
LOC: EC 20:00
DX: R07.9 Chest pain, unspecified (principal); F41.9 Anxiety disorder, unspecified; Z79.3 Long term (current) use of hormonal contraceptives; Z79.899 Other long term (current) drug therapy; Z88.0 Allergy status to penicillin
CPT/HCPCS: 36415; 71046; 80053; 82550; 82553; 84484; 85025; 85379; 96374; 96375; 99285

== ENCOUNTER → 2019-04-15 | Outpatient (CLI) | payer BC ==
--- NOTE | 2019-04-15 12:00 | MM ---
Reason for exam: screening (asymptomatic). Baseline mammogram. History: Took hormonal contraceptives for 8 years beginning at age 29. Physical Findings: Nurse did not find any significant physical abnormalities on exam. MG 3D Screening Mammo W/Cad Bilateral CC and MLO view(s) were taken. There are scattered fibroglandular densities. Finding: There is an equal density (isodense) mass in the upper outer quadrant of the right breast. These results were verbally communicated with the patient and result sheet given to the patient on 04/15/19. ASSESSMENT: Incomplete: need additional imaging evaluation, BI-RAD 0 RECOMMENDATION: Special view mammogram of the right breast.
--- NOTE | 2019-04-15 12:01 | MM ---
Reason for exam: additional evaluation requested from abnormal screening. History: Took hormonal contraceptives for 8 years beginning at age 29. Physical Findings: Breast exam preformed at baseline screening. MG 3D Work Up W/Cad RT Spot compression CC, spot compression MLO, and LM view(s) were taken of the right breast. There are scattered fibroglandular densities. Benign appearing bilateral calcifications. These results were verbally communicated with the patient and result sheet given to the patient on 04/15/19. ASSESSMENT: Probably benign, BI-RAD 3 RECOMMENDATION: Follow-up diagnostic mammogram of the right breast in 6 months.
== END | disposition home or self-care (01) ==
LOC: RADMAMWWP 10:55
PROVIDERS: ATTEND Obstetrics & Gynecology
DX: Z12.31 Encounter for screening mammogram for malignant neoplasm of breast (principal); R92.8 Other abnormal and inconclusive findings on diagnostic imaging of breast
CPT/HCPCS: 77061; 77063; 77065; 77067

== ENCOUNTER 2019-05-07 00:14 | Emergency (ER) | payer BC ==
[2019-05-07] MEDS ORDERED: SODIUM CHLORIDE 0.9% 1,000 ML IV STA (00:46)
[2019-05-07 01:05] LABS: Basophils % (A) 0 %; Eosinophils # (A) 0.4 k/uL (0-0.7); Eosinophils % (A) 4 %; HCT 36.7 % (34.0-46.0); HGB 12.3 gm/dL (11.4-16.0); Lymphocytes # (A) 2.2 k/uL (1.0-4.8); Lymphocytes % (A) 23 %; MCH 29.9 pg (25.0-35.0); MCHC 33.5 g/dL (31.0-37.0); MCV 89.3 fL (80.0-100.0); Mean Platelet Volume 7.5; Monocytes # (A) 0.4 k/uL (0-1.0); Monocytes % (A) 4 %; Neutrophils # (A) 6.5 k/uL (1.3-7.7); Neutrophils % (A) 69 %; Platelet Count 229 k/uL (150-450); RBC 4.11 m/uL (3.80-5.40); RDW 14.6 % (11.5-15.5); WBC 9.5 k/uL (3.8-10.6)
[2019-05-07] MEDS ORDERED: MECLIZINE 12.5 MG TAB PO STA (01:08)
--- NOTE | 2019-05-07 01:14 | CT ---
EXAM: CT Head Without Intravenous Contrast CLINICAL HISTORY: ITS.REASON CT Reason: Pain TECHNIQUE: Axial computed tomography images of the head/brain without intravenous contrast. This CT exam was performed using one or more of the following dose reduction techniques: automated exposure control, adjustment of the mA and/or kV according to patient size, and/or use of iterative reconstruction technique. COMPARISON: No relevant prior studies available. FINDINGS: Brain: No hemorrhage. No edema. Ventricles: Unremarkable. No ventriculomegaly. Bones/joints: No acute fracture. Soft tissues: Unremarkable. Sinuses: No fluid levels. Mastoid air cells: Unremarkable as visualized. No mastoid effusion. IMPRESSION: No acute intracranial findings
[2019-05-07 01:17] LABS: ALT 16 U/L (9-52); AST 18 U/L (14-36); African American GFR (CKD) >90 (>60 ml/min/1.73 sqM); Albumin 4.2 g/dL (3.5-5.0); Alkaline Phosphatase 69 U/L (38-126); Anion Gap 8 mmol/L; Blood Urea Nitrogen 21 mg/dL (7-17); Calcium 9.3 mg/dL (8.4-10.2); Carbon Dioxide 23 mmol/L (22-30); Chloride 108 mmol/L (98-107); Glucose 95 mg/dL (74-99); Potassium 4.2 mmol/L (3.5-5.1); Sodium 139 mmol/L (137-145); Total Bilirubin 0.3 mg/dL (0.2-1.3); Total Protein 7.1 g/dL (6.3-8.2)
[2019-05-07 01:58] VITALS: RESP 19
[2019-05-07 01:58] LABS: Appearance,Urine Clear (Clear); Bilirubin,Urine Negative (Negative); Blood,Urine Negative (Negative); Color,Urine Colorless; Glucose,Urine (UA) Negative (Negative); Ketones,Urine Negative (Negative); Leukocyte Esterase,Urine Negative (Negative); Nitrite,Urine Negative (Negative); Protein,Urine Negative (Negative); Specific Gravity,Urine 1.008 (1.001-1.035); Urobilinogen,Urine <2.0 mg/dL (<2.0)
--- NOTE | 2019-05-07 02:14 | ED ---
General Adult HPI - General Source: patient, RN notes reviewed, old records reviewed Mode of arrival: ambulatory Limitations: no limitations <Isaias Marquez - Last Filed: 05/07/19 02:22> <Annabel Muniz - Last Filed: 05/07/19 02:39> - General Chief complaint: Dizziness Stated complaint: Dizziness Time Seen by Provider: 05/07/19 00:29 - History of Present Illness Initial comments: 38-year-old female patient with no pertinent past history, status post tubal ligation presents to ED for complaint of approximate 4 days of waxing and waning dizziness. Patient words that she feels as if the room is spinning about her. Patient also reports some mild waxing and waning bitemporal headaches. Patient denies headache right now. Patient denies recent malaise, thunderclap onset, nuchal rigidity. Patient denies any auditory sensations. Patient denies any chest pain shortness of breath abdominal pain. Systemic: Pt denies fatigue, fever/chills, rash. Pt denies weakness, night sweats, weight loss. Neuro: Pt denies headache, visual disturbances, syncope or pre-syncope. HEENT: Pt denies ocular discharge or irritation, otalgia, rhinorrhea, pharyngitis or notable lymphadenopathy. Cardiopulmonary: Pt denies chest pain, SOB, heart palpitations, dyspnea on exertion. Abdominal/GI: Pt denies abdominal pain, n/v/d. : Pt denies dysuria, burning w/ urination, frequency/urgency. Denies new onset urinary or bowel incontinence. MSK: Pt denies myalgia, loss of strength or function in extremities. Neuro: Pt denies new onset weakness, paresthesias. (Isaias Marquez) - Related Data Home Medications Medication Instructions Recorded Confirmed Acetaminophen [Tylenol Extra 1,000 mg PO Q6H PRN 04/09/18 04/09/18 Strength] Beyaz-28 1 tab PO HS 04/09/18 04/09/18 Ergocalciferol (Vitamin D2) 50,000 unit PO BEAVERS 04/09/18 04/09/18 [Vitamin D2] Ibuprofen [Motrin Ib] 600 mg PO Q6H PRN 04/09/18 04/09/18 Previous Rx's Medication Instructions Recorded Meclizine [Antivert] 25 mg PO Q6H PRN #20 tab 05/07/19 Allergies Allergy/AdvReac Type Severity Reaction Status Date / Time cephalexin Allergy Anaphylaxis Verified 05/07/19 00:26 Penicillins Allergy Anaphylaxis Verified 05/07/19 00:26 Review of Systems ROS Other: All systems not noted in ROS Statement are negative. <Isaias Marquez Zachary - Last Filed: 05/07/19 02:22> ROS Other: All systems not noted in ROS Statement are negative. <Annabel Muniz - Last Filed: 05/07/19 02:39> ROS Statement: Those systems with pertinent positive or pertinent negative responses have been documented in the HPI. Past Medical History Past Medical History: No Reported History History of Any Multi-Drug Resistant Organisms: None Reported Past Surgical History: Appendectomy, Tubal Ligation Additional Past Surgical History / Comment(s): Kidney stone removal Past Psychological History: No Psychological Hx Reported Smoking Status: Current every day smoker Past Alcohol Use History: None Reported Past Drug Use History: None Reported <AlmaIsaias J - Last Filed: 05/07/19 02:22> General Exam Limitations: no limitations <Isaias Marquez - Last Filed: 05/07/19 02:22> - General Exam Comments Initial Comments: Constitutional: NAD, AOX3, Pt has pleasant affect. HEENT: NC/AT, trachea midline, neck supple, no lymphadenopathy. Posterior pharynx non erythematous, without exudates. External ears appear normal, without discharge. TMs are clifton bilaterally, no bulging, no erythema, no perforation. Mucous membranes moist. Eyes PERRLA, EOM intact. There is no scleral icterus. No pallor noted. Cardiopulmonary: RRR, no murmurs, rubs or gallops, no JVD noted. Lungs CTAB in anterior and posterior quinn. No peripheral edema. Abdominal exam: Abdomen soft and non-distended. Abdomen non-tender to palpation in all 4 quadrants. Bowel sounds active in LLQ. No hepatosplenomegaly. No ecchymosis Neuro: CN II-XII intact. No nuchal rigidity. No raccon eyes, no merrill sign, no hemotympanum. No cervical spinal tenderness. NIH 0. No nystagmus. MSK: No posterior calf tenderness bilaterally, homans sign negative bilaterally. Posterior tibialis and radial pulse +2 bilaterally. Sensation intact in upper and lower extremities. Full active ROM in upper and lower extremities, 5/5 stregnth. (Isaias Marquez) Course Vital Signs 05/07/19 05/07/19 00:24 01:56 Temperature 98.2 F Pulse Rate 68 62 Respiratory 18 19 Rate Blood Pressure 123/76 103/75 O2 Sat by Pulse 100 98 Oximetry Medical Decision Making - Lab Data Result diagrams: 05/07/19 00:52 05/07/19 00:52 - EKG Data -: EKG Interpreted by Me (and dr muniz) <Iasias Marquez - Last Filed: 05/07/19 02:22> - Lab Data Result diagrams: 05/07/19 00:52 05/07/19 00:52 <Annabel Muniz - Last Filed: 05/07/19 02:39> - Medical Decision Making 38-year-old female patient with no pertinent past history, status post tubal ligation presents to ED for complaint of approximate 4 days of waxing and waning dizziness. Patient words that she feels as if the room is spinning about her. Patient also reports some mild waxing and waning bitemporal headaches. Patient denies headache right now. Patient denies recent malaise, thunderclap onset, nuchal rigidity. Patient denies any auditory sensations. Patient denies any chest pain shortness of breath abdominal pain. Patient vital signs stable, afebrile. Physical exam did not display acute pathology, neurologic exam within normal limits and a dysuria. No nystagmus. Laboratory investigations revealed nonspecific CBC, CMP, UA. CT brain revealed no acute process. Patient administered meclizine with minimal improvement. EKG not concerning for acute ischemia. Patient will be discharged with neurology follow-up. Case discussed with Dr. Muniz. (Isaias Marquez) I was available for consultation in the emergency department. The history and physical exam were done by the midlevel provider. I was consulted for this patient's care. I reviewed the case with the midlevel provider and based on their presentation of the patient, I agree with the assessment, medical decision making and plan of care as documented. Chart was dictated using [employer] dictation software. Attempts were made to correct any dictation errors however some typographical errors may persist. (Annabel Muniz) - Lab Data Lab Results 05/07/19 05/07/19 05/07/19 Range/Units 00:52 00:52 00:52 WBC 9.5 (3.8-10.6) k/uL RBC 4.11 (3.80-5.40) m/uL Hgb 12.3 (11.4-16.0) gm/dL Hct 36.7 (34.0-46.0) % MCV 89.3 (80.0-100.0) fL MCH 29.9 (25.0-35.0) pg MCHC 33.5 (31.0-37.0) g/dL RDW 14.6 (11.5-15.5) % Plt Count 229 (150-450) k/uL Neutrophils % 69 % Lymphocytes % 23 % Monocytes % 4 % Eosinophils % 4 % Basophils % 0 % Neutrophils # 6.5 (1.3-7.7) k/uL Lymphocytes # 2.2 (1.0-4.8) k/uL Monocytes # 0.4 (0-1.0) k/uL Eosinophils # 0.4 (0-0.7) k/uL Basophils # 0.0 (0-0.2) k/uL Sodium 139 (137-145) mmol/L Potassium 4.2 (3.5-5.1) mmol/L Chloride 108 H (98-107) mmol/L Carbon Dioxide 23 (22-30) mmol/L Anion Gap 8 mmol/L BUN 21 H (7-17) mg/dL Creatinine 0.49 L (0.52-1.04) mg/dL Est GFR (CKD-EPI)AfAm >90 (>60 ml/min/1.73 sqM) Est GFR (CKD-EPI)NonAf >90 (>60 ml/min/1.73 sqM) Glucose 95 (74-99) mg/dL Calcium 9.3 (8.4-10.2) mg/dL Magnesium 1.9 (1.6-2.3) mg/dL Total Bilirubin 0.3 (0.2-1.3) mg/dL AST 18 (14-36) U/L ALT 16 (9-52) U/L Alkaline Phosphatase 69 (38-126) U/L Total Protein 7.1 (6.3-8.2) g/dL Albumin 4.2 (3.5-5.0) g/dL Urine Color Urine Appearance (Clear) Urine pH (5.0-8.0) Ur Specific [place] (1.001-1.035) Urine Protein (Negative) Urine Glucose (UA) (Negative) Urine Ketones (Negative) Urine Blood (Negative) Urine Nitrite (Negative) Urine Bilirubin (Negative) Urine Urobilinogen (<2.0) mg/dL Ur Leukocyte Esterase (Negative) 05/07/19 Range/Units 01:49 WBC (3.8-10.6) k/uL RBC (3.80-5.40) m/uL Hgb (11.4-16.0) gm/dL Hct (34.0-46.0) % MCV (80.0-100.0) fL MCH (25.0-35.0) pg MCHC (31.0-37.0) g/dL RDW (11.5-15.5) % Plt Count (150-450) k/uL Neutrophils % % Lymphocytes % % Monocytes % % Eosinophils % % Basophils % % Neutrophils # (1.3-7.7) k/uL Lymphocytes # (1.0-4.8) k/uL Monocytes # (0-1.0) k/uL Eosinophils # (0-0.7) k/uL Basophils # (0-0.2) k/uL Sodium (137-145) mmol/L Potassium (3.5-5.1) mmol/L Chloride (98-107) mmol/L Carbon Dioxide (22-30) mmol/L Anion Gap mmol/L BUN (7-17) mg/dL Creatinine (0.52-1.04) mg/dL Est GFR (CKD-EPI)AfAm (>60 ml/min/1.73 sqM) Est GFR (CKD-EPI)NonAf (>60 ml/min/1.73 sqM) Glucose (74-99) mg/dL Calcium (8.4-10.2) mg/dL Magnesium (1.6-2.3) mg/dL Total Bilirubin (0.2-1.3) mg/dL AST (14-36) U/L ALT (9-52) U/L Alkaline Phosphatase (38-126) U/L Total Protein (6.3-8.2) g/dL Albumin (3.5-5.0) g/dL Urine Color Colorless Urine Appearance Clear (Clear) Urine pH 5.0 (5.0-8.0) Ur Specific [place] 1.008 (1.001-1.035) Urine Protein Negative (Negative) Urine Glucose (UA) Negative (Negative) Urine Ketones Negative (Negative) Urine Blood Negative (Negative) Urine Nitrite Negative (Negative) Urine Bilirubin Negative (Negative) Urine Urobilinogen <2.0 (<2.0) mg/dL Ur Leukocyte Esterase Negative (Negative) - EKG Data EKG Comments: Ventricular rate 67, patient: 48, QRS 80, QT/QTC 302/414. Normal sinus rhythm, cannot rule out anterior infarct. No signs of acute ischemia at this time. (Isaias Marquez) Disposition Is patient prescribed a controlled substance at d/c from ED?: No <Isaias Marquez - Last Filed: 05/07/19 02:22> <Annabel Muniz - Last Filed: 05/07/19 02:39> Clinical Impression: Dizziness Disposition: HOME SELF-CARE Condition: Stable Instructions (If sedation given, give patient instructions): Dizziness (ED) Additional Instructions: Patient to adhere to previously discussed treatment plan and will take medication(s) as directed. Patient to follow up with PCP in 1-2 days. Patient to return to ED if symptoms do not improve. Take medication as needed for symptoms. Follow up with neurology and primary care provider in 1-2 days. Prescriptions: Meclizine [Antivert] 25 mg PO Q6H PRN #20 tab PRN Reason: Dizziness Referrals: Scott Garner MD [Primary Care Provider] - 1-2 days Catalina Wright MD [Medical Doctor] - 1-2 days
[2019-05-07 02:52] VITALS: BP 112/73; PULSE 65; TEMP 98.5
== END 2019-05-07 02:45 | disposition home or self-care (01) ==
LOC: EC 00:14
DX: R42 Dizziness and giddiness (principal); R51 Headache; F17.200 Nicotine dependence, unspecified, uncomplicated; Z79.3 Long term (current) use of hormonal contraceptives; Z79.899 Other long term (current) drug therapy; Z88.0 Allergy status to penicillin; Z88.1 Allergy status to other antibiotic agents
CPT/HCPCS: 36415; 70450; 80053; 81003; 83735; 85025; 93005; 96360; 99285

== ENCOUNTER 2019-08-25 08:44 | Emergency (ER) | payer BC ==
[2019-08-25] MEDS ORDERED: PANTOPRAZOLE 40 MG/10 ML VIAL IVP STA (09:21)
[2019-08-25] MEDS ORDERED: ONDANSETRON 4 MG/2 ML VIAL IVP STA (09:21)
[2019-08-25] MEDS ORDERED: MORPHINE SULFATE 4 MG/ML SYRINGE IV STA (09:21)
[2019-08-25] MEDS ORDERED: KETOROLAC 30 MG/ML 1 ML VIAL IVP STA (09:21)
[2019-08-25] MEDS ORDERED: SODIUM CHLORIDE 0.9% 1,000 ML IV STA ×2 (09:21)
--- NOTE | 2019-08-25 09:24 | ED ---
Abdominal Pain HPI - General Chief Complaint: Abdominal Pain Stated Complaint: abdominal & back pain Time Seen by Provider: 08/25/19 09:05 Source: patient, RN notes reviewed, old records reviewed Mode of arrival: ambulatory Limitations: no limitations - History of Present Illness Initial Comments: Pedrito is a 38-year-old female presents emergency department today for evaluation with chief complaint of 3 days of back pain, radiating towards her abdomen. She reports seems to worse on the left side. Patient states that she is getting off her menstrual cycle a few days ago. She went to urgent care yesterday and they had some blood in her urine but denied any significant infection. However Patient states they still put her on antibiotics. Patient has had no recent fevers or chills. She is still nauseated but no changes in her stool or urine habits. - Related Data Home Medications Medication Instructions Recorded Confirmed Ergocalciferol (Vitamin D2) 50,000 unit PO BEAVERS 04/09/18 08/25/19 [Vitamin D2] Ibuprofen [Motrin Ib] 600 mg PO Q6H PRN 04/09/18 08/25/19 Ciprofloxacin HCl [Cipro] 500 mg PO Q12HR 08/25/19 08/25/19 Methocarbamol [Robaxin] 500 mg PO BID 08/25/19 08/25/19 Previous Rx's Medication Instructions Recorded Pantoprazole Sodium [Protonix] 40 mg PO DAILY #30 tablet. 08/25/19 Allergies Allergy/AdvReac Type Severity Reaction Status Date / Time cephalexin Allergy Anaphylaxis Verified 08/25/19 14:19 Penicillins Allergy Anaphylaxis Verified 08/25/19 14:19 Review of Systems ROS Statement: Those systems with pertinent positive or pertinent negative responses have been documented in the HPI. ROS Other: All systems not noted in ROS Statement are negative. Past Medical History Past Medical History: No Reported History History of Any Multi-Drug Resistant Organisms: None Reported Past Surgical History: Appendectomy, Tubal Ligation Additional Past Surgical History / Comment(s): Kidney stone removal Past Psychological History: No Psychological Hx Reported Smoking Status: Current every day smoker Past Alcohol Use History: None Reported Past Drug Use History: None Reported General Exam - General Exam Comments Initial Comments: Is a 38-year-old female. No significant distress. Limitations: no limitations General appearance: alert, in no apparent distress Head exam: Present: atraumatic, normocephalic, normal inspection Eye exam: Present: normal appearance ENT exam: Present: normal exam, mucous membranes moist Neck exam: Present: normal inspection. Absent: tenderness, meningismus, lymphadenopathy Respiratory exam: Present: normal lung sounds bilaterally. Absent: respiratory distress, wheezes, rales, rhonchi, stridor Cardiovascular Exam: Present: regular rate, normal rhythm, normal heart sounds. Absent: systolic murmur, diastolic murmur, rubs, gallop, clicks GI/Abdominal exam: Present: soft, tenderness (Left upper quadrant tenderness), normal bowel sounds. Absent: distended, guarding, rebound, rigid Extremities exam: Present: normal inspection Back exam: Present: normal inspection, CVA tenderness (L), muscle spasm Neurological exam: Present: alert, oriented X3, CN II-XII intact Psychiatric exam: Present: normal affect, normal mood Course Vital Signs 08/25/19 08/25/19 08:48 11:28 Temperature 97.8 F 97.4 F L Pulse Rate 88 50 L Respiratory 16 18 Rate Blood Pressure 144/92 116/65 O2 Sat by Pulse 98 97 Oximetry Medical Decision Making - Medical Decision Making Patient is a 38-year-old female presents emergency department if her left sided abdominal pain CVA tenderness worse on Friday. Patient went to [facility] and was sent here with continued pain. She was diagnosed with a mild urinary tract infection that time. However this time patient's urinalysis is negative for any signs of infection. Patient did have some mild hematuria. CT head and pelvis without contrast was completed to rule out kidney stone. There is no signs of hydronephrosis or hydroureter. Patient does have a abnormal fatty mass in the head of her pancreas. Patient was informed of these results and could relate to patient's pain. However it is interesting patient's liver enzymes and pancreatic enzymes are unremarkable. This time Patient will be fired multiple doses of IV pain medication. I discussed the possibility of admission for this abnormal mass. Patient had family obligations and stated that she could not be admitted at this time but if pain persists that she would return. I discussed that if Patient could also have prompt follow-up with her primary care doctor. She also is very nervous that she does have a stressful upcoming weeks is her [id number] daughter is scheduled to have open heart surgery next week. Patient states she was to be well and healthy before this would occur. Discussed that she can be discharged at this time and to return if she have any worsening symptoms. - Lab Data Result diagrams: 08/25/19 09:05 08/25/19 09:05 Lab Results 08/25/19 08/25/19 08/25/19 Range/Units 09:05 09:05 09:05 WBC 4.3 (3.8-10.6) k/uL RBC 4.24 (3.80-5.40) m/uL Hgb 13.0 (11.4-16.0) gm/dL Hct 37.9 (34.0-46.0) % MCV 89.2 (80.0-100.0) fL MCH 30.7 (25.0-35.0) pg MCHC 34.4 (31.0-37.0) g/dL RDW 15.5 (11.5-15.5) % Plt Count 204 (150-450) k/uL Neutrophils % 65 % Lymphocytes % 20 % Monocytes % 6 % Eosinophils % 7 % Basophils % 1 % Neutrophils # 2.8 (1.3-7.7) k/uL Lymphocytes # 0.8 L (1.0-4.8) k/uL Monocytes # 0.3 (0-1.0) k/uL Eosinophils # 0.3 (0-0.7) k/uL Basophils # 0.0 (0-0.2) k/uL PT 9.4 (9.0-12.0) sec INR 0.9 (<1.2) APTT 27.6 (22.0-30.0) sec Sodium 140 (137-145) mmol/L Potassium 4.0 (3.5-5.1) mmol/L Chloride 108 H (98-107) mmol/L Carbon Dioxide 24 (22-30) mmol/L Anion Gap 8 mmol/L BUN 13 (7-17) mg/dL Creatinine 0.57 (0.52-1.04) mg/dL Est GFR (CKD-EPI)AfAm >90 (>60 ml/min/1.73 sqM) Est GFR (CKD-EPI)NonAf >90 (>60 ml/min/1.73 sqM) Glucose 97 (74-99) mg/dL Calcium 8.9 (8.4-10.2) mg/dL Total Bilirubin 0.4 (0.2-1.3) mg/dL AST 18 (14-36) U/L ALT 29 (9-52) U/L Alkaline Phosphatase 88 (38-126) U/L Total Protein 7.0 (6.3-8.2) g/dL Albumin 3.8 (3.5-5.0) g/dL Amylase <30 L (30-110) U/L Lipase 43 (23-300) U/L Urine Color Urine Appearance (Clear) Urine pH (5.0-8.0) Ur Specific [place] (1.001-1.035) Urine Protein (Negative) Urine Glucose (UA) (Negative) Urine Ketones (Negative) Urine Blood (Negative) Urine Nitrite (Negative) Urine Bilirubin (Negative) Urine Urobilinogen (<2.0) mg/dL Ur Leukocyte Esterase (Negative) Urine RBC (0-5) /hpf Urine WBC (0-5) /hpf Ur Squamous Epith Cells (0-4) /hpf Urine Bacteria (None) /hpf Urine Mucus (None) /hpf 08/25/19 Range/Units 09:05 WBC (3.8-10.6) k/uL RBC (3.80-5.40) m/uL Hgb (11.4-16.0) gm/dL Hct (34.0-46.0) % MCV (80.0-100.0) fL MCH (25.0-35.0) pg MCHC (31.0-37.0) g/dL RDW (11.5-15.5) % Plt Count (150-450) k/uL Neutrophils % % Lymphocytes % % Monocytes % % Eosinophils % % Basophils % % Neutrophils # (1.3-7.7) k/uL Lymphocytes # (1.0-4.8) k/uL Monocytes # (0-1.0) k/uL Eosinophils # (0-0.7) k/uL Basophils # (0-0.2) k/uL PT (9.0-12.0) sec INR (<1.2) APTT (22.0-30.0) sec Sodium (137-145) mmol/L Potassium (3.5-5.1) mmol/L Chloride (98-107) mmol/L Carbon Dioxide (22-30) mmol/L Anion Gap mmol/L BUN (7-17) mg/dL Creatinine (0.52-1.04) mg/dL Est GFR (CKD-EPI)AfAm (>60 ml/min/1.73 sqM) Est GFR (CKD-EPI)NonAf (>60 ml/min/1.73 sqM) Glucose (74-99) mg/dL Calcium (8.4-10.2) mg/dL Total Bilirubin (0.2-1.3) mg/dL AST (14-36) U/L ALT (9-52) U/L Alkaline Phosphatase (38-126) U/L Total Protein (6.3-8.2) g/dL Albumin (3.5-5.0) g/dL Amylase (30-110) U/L Lipase (23-300) U/L Urine Color Yellow Urine Appearance Cloudy H (Clear) Urine pH 6.0 (5.0-8.0) Ur Specific [place] 1.031 (1.001-1.035) Urine Protein Trace H (Negative) Urine Glucose (UA) Negative (Negative) Urine Ketones Negative (Negative) Urine Blood Small H (Negative) Urine Nitrite Negative (Negative) Urine Bilirubin Negative (Negative) Urine Urobilinogen <2.0 (<2.0) mg/dL Ur Leukocyte Esterase Negative (Negative) Urine RBC 14 H (0-5) /hpf Urine WBC 2 (0-5) /hpf Ur Squamous Epith Cells 12 H (0-4) /hpf Urine Bacteria Rare H (None) /hpf Urine Mucus Moderate H (None) /hpf - Radiology Data Radiology results: report reviewed Determine if a mass in the pancreas is indeterminate. Follow-up is recommended to assess for stability. Disposition Clinical Impression: Mass of pancreas, Intractable abdominal pain Disposition: HOME SELF-CARE Condition: Good Instructions (If sedation given, give patient instructions): Abdominal Pain (ED) Additional Instructions: Patient is advised to follow-up with her primary care promptly. Return if pain worsens. Prescriptions: Pantoprazole Sodium [Protonix] 40 mg PO DAILY #30 tablet.dr Is patient prescribed a controlled substance at d/c from ED?: No Referrals: Scott Garner MD [Primary Care Provider] - 1-2 days Time of Disposition: 17:54
[2019-08-25 09:47] LABS: Basophils % (A) 1 %; Eosinophils # (A) 0.3 k/uL (0-0.7); Eosinophils % (A) 7 %; HCT 37.9 % (34.0-46.0); Lymphocytes # (A) 0.8 k/uL (1.0-4.8); Lymphocytes % (A) 20 %; MCH 30.7 pg (25.0-35.0); MCHC 34.4 g/dL (31.0-37.0); MCV 89.2 fL (80.0-100.0); Mean Platelet Volume 7.5; Monocytes # (A) 0.3 k/uL (0-1.0); Monocytes % (A) 6 %; Neutrophils # (A) 2.8 k/uL (1.3-7.7); Neutrophils % (A) 65 %; Platelet Count 204 k/uL (150-450); RBC 4.24 m/uL (3.80-5.40); RDW 15.5 % (11.5-15.5); WBC 4.3 k/uL (3.8-10.6)
[2019-08-25 09:54] LABS: Appearance,Urine Cloudy (Clear); Bacteria,Urine Rare /hpf; Bilirubin,Urine Negative (Negative); Blood,Urine Small (Negative); Color,Urine Yellow; Glucose,Urine (UA) Negative (Negative); Ketones,Urine Negative (Negative); Leukocyte Esterase,Urine Negative (Negative); Mucus,Urine Moderate /hpf; Nitrite,Urine Negative (Negative); Protein,Urine Trace (Negative); RBC,Urine 14 /hpf (0-5); Specific Gravity,Urine 1.031 (1.001-1.035); Squamous Epithelial Cell,Urine 12 /hpf (0-4); Urobilinogen,Urine <2.0 mg/dL (<2.0); WBC,Urine 2 /hpf (0-5)
[2019-08-25 09:57] LABS: ALT 29 U/L (9-52); AST 18 U/L (14-36); African American GFR (CKD) >90 (>60 ml/min/1.73 sqM); Albumin 3.8 g/dL (3.5-5.0); Alkaline Phosphatase 88 U/L (38-126); Amylase <30 U/L (30-110); Anion Gap 8 mmol/L; Blood Urea Nitrogen 13 mg/dL (7-17); Calcium 8.9 mg/dL (8.4-10.2); Carbon Dioxide 24 mmol/L (22-30); Chloride 108 mmol/L (98-107); Glucose 97 mg/dL (74-99); Sodium 140 mmol/L (137-145); Total Bilirubin 0.4 mg/dL (0.2-1.3)
[2019-08-25 09:58] LABS: INR 0.9 (<1.2); Partial Thromboplastin Time 27.6 sec (22.0-30.0); Prothrombin Time 9.4 sec (9.0-12.0)
--- NOTE | 2019-08-25 11:09 | CT ---
EXAMINATION TYPE: CT abdomen pelvis wo con DATE OF EXAM: 08/25/2019 COMPARISON: None HISTORY: microscopic hematuria, left flank pain CT DLP: 1525.4 mGycm Automated exposure control for dose reduction was used. TECHNIQUE: Helical acquisition of images from the lung bases through the pelvis. FINDINGS: Lack of intravenous contrast could compromise sensitivity of the exam. LUNG BASES: Minimal dependent atelectatic changes.. AORTA: No significant abnormality is appreciated. LIVER/GB: Liver is enlarged. Gallbladder is normal. PANCREAS: There is focal fat density present at the head of the pancreas level with some small focal areas of soft tissue stranding noted, some local mass effect which extends along the posterior margin of the pancreas towards the celiac axis towards the left. The lesion measures approximately 3.4 cm i n greatest transverse dimension on axial image #43, 4 cm in cephalad to caudal dimension on coronal i mage #49 and 6 cm in AP dimension on axial image 43. SPLEEN: No significant abnormality is seen. ADRENALS: No significant abnormality is seen. KIDNEYS: No significant abnormality is seen. REPRODUCTIVE ORGANS: There is cystic foci associated with the left ovary. URINARY BLADDER: No significant abnormality is seen. BOWEL: No significant abnormality is seen. FREE AIR: No Free Air is visible. ASCITES: None visible. PELVIC ADENOPATHY: None visualized. RETROPERITONEAL ADENOPATHY: No Retroperitoneal Adenopathy visible. OSSEOUS STRUCTURES: Degenerative disc change noted at the lumbosacral junction, there is associated vacuum phenomenon. IMPRESSION: INDETERMINATE FATTY MASS AT THE HEAD OF THE PANCREAS IS INDETERMINATE, FOLLOW-UP IS RECOMMENDED TO [facility] FOR STABILITY. Noncontrast exam. Hepatomegaly.
[2019-08-25 11:29] VITALS: BP 116/65; PULSE 50; RESP 18; TEMP 97.4
[2019-08-25] MEDS ORDERED: MORPHINE SULFATE 4 MG/ML SYRINGE IVP STA (12:13)
== END 2019-08-25 13:01 | disposition home or self-care (01) ==
LOC: EC 08:44
DX: K86.9 Disease of pancreas, unspecified (principal); R10.31 Right lower quadrant pain; R31.9 Hematuria, unspecified; R11.0 Nausea; M54.9 Dorsalgia, unspecified; F17.200 Nicotine dependence, unspecified, uncomplicated; Z87.442 Personal history of urinary calculi; Z98.890 Other specified postprocedural states; Z90.49 Acquired absence of other specified parts of digestive tract; Z98.51 Tubal ligation status; Z79.899 Other long term (current) drug therapy; Z88.0 Allergy status to penicillin; Z88.1 Allergy status to other antibiotic agents
CPT/HCPCS: 36415; 80053; 82150; 83690; 85025; 85610; 85730; 81001; 74176; 99284; 96374; 96375 ×3; 96376; 96361 ×3; J2270; J2405; J1885; C9113

== ENCOUNTER 2019-08-25 14:06 | Observation (INO) | payer BC ==
[2019-08-25] MEDS ORDERED: SODIUM CHLORIDE 0.9% 1,000 ML IV ONE (14:51)
[2019-08-25] MEDS ORDERED: KETOROLAC 30 MG/ML 1 ML VIAL IVP STA (15:43)
[2019-08-25] MEDS ORDERED: ORPHENADRINE 30 MG/ML 2 ML VIAL IVP STA (15:44)
--- NOTE | 2019-08-25 15:45 | ED ---
Abdominal Pain HPI <Slade Lal - Last Filed: 08/25/19 16:26> - General Source: patient, RN notes reviewed, old records reviewed Mode of arrival: ambulatory Limitations: no limitations <Telma Taylor - Last Filed: 08/25/19 17:04> - General Chief Complaint: Abdominal Pain Stated Complaint: revisit Time Seen by Provider: 08/25/19 14:37 - History of Present Illness Initial Comments: Patient is a 38-year-old female presents emergency department today for evaluation with chief complaint of upper abdominal pain on left side flank. She seen earlier today but had to go home to help take care of her kids. Patient at this time continues to complain of some abdominal pain and she took care of her kids at home and return. She complains some nausea and some back pain associated with this. When she was earlier seen in the ER she was found to have a fatty mass over her pancreas. However liver enzymes pancreas enzymes are normal. Lab work was otherwise unremarkable. Patient continued to have pain requiring multiple doses of IV Narcotic pain medicine. (Telma Taylor) - Related Data Home Medications Medication Instructions Recorded Confirmed Ergocalciferol (Vitamin D2) 50,000 unit PO BEAVERS 04/09/18 08/25/19 [Vitamin D2] Ibuprofen [Motrin Ib] 600 mg PO Q6H PRN 04/09/18 08/25/19 Ciprofloxacin HCl [Cipro] 500 mg PO Q12HR 08/25/19 08/25/19 Methocarbamol [Robaxin] 500 mg PO BID 08/25/19 08/25/19 Previous Rx's Medication Instructions Recorded Pantoprazole Sodium [Protonix] 40 mg PO DAILY #30 tablet. 08/25/19 Allergies Allergy/AdvReac Type Severity Reaction Status Date / Time cephalexin Allergy Anaphylaxis Verified 08/25/19 14:19 Penicillins Allergy Anaphylaxis Verified 08/25/19 14:19 Review of Systems ROS Other: All systems not noted in ROS Statement are negative. <Slade Lal - Last Filed: 08/25/19 16:26> ROS Other: All systems not noted in ROS Statement are negative. <Telma Taylor - Last Filed: 08/25/19 17:04> ROS Statement: Those systems with pertinent positive or pertinent negative responses have been documented in the HPI. Past Medical History Past Medical History: No Reported History History of Any Multi-Drug Resistant Organisms: None Reported Past Surgical History: Appendectomy, Tubal Ligation Additional Past Surgical History / Comment(s): Kidney stone removal Past Psychological History: No Psychological Hx Reported Smoking Status: Current every day smoker Past Alcohol Use History: None Reported Past Drug Use History: None Reported <Telma Taylor - Last Filed: 08/25/19 17:04> General Exam Limitations: no limitations Head exam: Present: atraumatic, normocephalic, normal inspection Eye exam: Present: normal appearance, PERRL, EOMI. Absent: scleral icterus, conjunctival injection, periorbital swelling ENT exam: Present: normal exam, mucous membranes moist Neck exam: Present: normal inspection. Absent: tenderness, meningismus, lymphadenopathy Respiratory exam: Present: normal lung sounds bilaterally. Absent: respiratory distress, wheezes, rales, rhonchi, stridor Cardiovascular Exam: Present: regular rate, normal rhythm, normal heart sounds. Absent: systolic murmur, diastolic murmur, rubs, gallop, clicks GI/Abdominal exam: Present: soft, normal bowel sounds. Absent: distended, tenderness, guarding, rebound, rigid Extremities exam: Present: normal inspection, full ROM, normal capillary refill. Absent: tenderness, pedal edema, joint swelling, calf tenderness Back exam: Present: normal inspection Neurological exam: Present: alert, oriented X3, CN II-XII intact Psychiatric exam: Present: normal affect, normal mood Skin exam: Present: warm, dry, intact, normal color. Absent: rash <Telma Taylor - Last Filed: 08/25/19 17:04> - General Exam Comments Initial Comments: Pleasant 38-year-old female. Alert and oriented. No significant distress. (Telma Taylor) Course <Slade Lal - Last Filed: 08/25/19 16:26> Vital Signs 08/25/19 08/25/19 14:12 16:07 Temperature 97.9 F Pulse Rate 85 60 Respiratory 16 18 Rate Blood Pressure 153/87 116/73 O2 Sat by Pulse 95 95 Oximetry - Reevaluation(s) Reevaluation #1: 08/25/19 16:26 PA supervision: I personally evaluate this case patient comes with refractory abdominal pain left flank pain she had an extensive workup earlier today in this emergency department. She will be admitted with consultation by Dr. Butterfield I did discuss case with Dr. Garner. (Slade Lal) Medical Decision Making - Radiology Data Radiology results: report reviewed <Telma Taylor - Last Filed: 08/25/19 17:04> - Medical Decision Making 38-year-old female presents for intractable left-sided abdominal and flank pain. Symptoms started on Friday. Patient was seen earlier today in the ER and had to leave for family issues. She returned return with worsening pain. At that time patient's computed tomography scan showed a fatty normality of the head of the pancreas. Her liver enzymes pink presents with rather is unremarkable. She states her pain. She was given Protonix and doses of IV pain medicine. Patient admitted at this time to Dr. Cruz with consults to surgery Dr. Butterfield. (Telma Taylor) - Radiology Data Reviewed the CT from earlier which showed a fatty mass in the pancreatic head of undetermined significance. No other inflammatory changes. No signs of hydronephrosis or bowel abnormality's. (Telma Taylor) Disposition <Slade Lal - Last Filed: 08/25/19 16:26> Is patient prescribed a controlled substance at d/c from ED?: No Time of Disposition: 17:04 <Telma Taylor - Last Filed: 08/25/19 17:04> Clinical Impression: Mass of pancreas, Intractable abdominal pain Disposition: ADMITTED IP TO THIS [facility] Condition: Stable Referrals: Scott Garner MD [Primary Care Provider] - 1-2 days
[2019-08-25] MEDS: PANTOPRAZOLE 40 MG/10 ML VIAL IVP SCH (16:00)
[2019-08-25] MEDS: SODIUM CHLORIDE 0.9% 1,000 ML IV SCH (16:00)
[2019-08-25] MEDS ORDERED: NALOXONE 0.4 MG/ML 1 ML VIAL IV PRN (17:05)
[2019-08-25] MEDS ORDERED: KETOROLAC 30 MG/ML 1 ML VIAL IVP PRN (17:05)
[2019-08-25] MEDS ORDERED: ONDANSETRON 4 MG/2 ML VIAL IVP PRN (17:05)
[2019-08-25] MEDS ORDERED: IBUPROFEN 400 MG TAB PO PRN (17:05)
[2019-08-25] MEDS ORDERED: ACETAMINOPHEN TAB 325 MG TAB PO PRN (17:05)
[2019-08-25] MEDS: MORPHINE SULFATE 4 MG/ML SYRINGE IV PRN ×2 (18:25→21:32)
[2019-08-25] MEDS ORDERED: IBUPROFEN 600 MG TAB PO PRN (19:32)
--- NOTE | 2019-08-25 20:53 | HP ---
HISTORY AND PHYSICAL CHIEF COMPLAINT: [id number] female coming in with left upper abdominal pain on left flank side. Came to the ER twice. Returned to the ER twice due to significant pain and nausea, at which time she was admitted. She was found have a fatty mass over her pancreas previously in the ER. She was going to be admitted for surgical intervention due to multiple IV pain medicine will be needed. She takes Robaxin, Cipro, Motrin, vitamin D at home. ALLERGIES: PENICILLIN, CEPHALEXIN. PAST SURGICAL HISTORY: 1. Appendectomy. 2. Tubal ligation. 3. Kidney stone removal. Current everyday smoker. PHYSICAL EXAMINATION: Temperature 97.9, pulse 60 to 85, respiratory rate 16 to 18, blood pressure 116 to 150s over 60s to 70s. Well-developed, well-nourished white female in no acute distress. CARDIOVASCULAR: S1, S2. LUNGS: Clear. GI: Soft. Mild tenderness to palpation, left lateral quadrant. EXTREMITIES: No cyanosis, clubbing, edema. BACK: Normal inspection. Cranial nerves are intact. PSYCH: Fair mood and affect. SKIN: Warm, dry, intact. ASSESSMENT: Atypical abdominal pain, possible fatty tumor in the head of the pancreas. Given Protonix, IV pain medicine. Will admit her, get surgical consult. work up this fatty mass in the pancreatic head and follow up with Surgery in the morning, possibly do an MRI of the abdomen. MMODL / IJN: [id number] /
[2019-08-25] MEDS: METHOCARBAMOL 500 MG TAB PO SCH (21:33)
[2019-08-25] MEDS ORDERED: LORazepam 2 MG/ML INJ IV PRN (21:43)
[2019-08-26] MEDS: SODIUM CHLORIDE 0.9% 1,000 ML IV SCH (05:03)
[2019-08-26 05:13] VITALS: RESP 16
[2019-08-26] MEDS: METHOCARBAMOL 500 MG TAB PO SCH (08:27)
[2019-08-26] MEDS: PANTOPRAZOLE 40 MG/10 ML VIAL IVP SCH (08:27)
[2019-08-26] MEDS ORDERED: PANTOPRAZOLE 40 MG/10 ML VIAL IV SCH (09:00)
[2019-08-26] MEDS ORDERED: PANTOPRAZOLE 40 MG TABLET PO SCH (09:00)
[2019-08-26] MEDS: MORPHINE SULFATE 4 MG/ML SYRINGE IV PRN ×2 (09:58→14:19)
[2019-08-26 12:18] VITALS: BP 158/84; PULSE 64; TEMP 97.2
--- NOTE | 2019-08-26 12:59 | P.GSCN ---
History of Present Illness Consult date: 08/26/19 Reason for Consult: abdominal pain Requesting physician: Telma Taylor History of present illness: CHIEF COMPLAINT: abdominal pain HISTORY OF PRESENT ILLNESS: 38 year old female who presented to the ER with abdominal pain. Patient reports she began having abdominal pain yesterday that was mostly in her left upper quadrant and back. She denies nausea or vomiting. Denies fever or chills. Denies diarrhea or constipation. Denies previous episodes of this type of abdominal pain before. Patient states she is feeling well this morning and abdominal pain has resolved. She is tolerating clear liquid diet. CT scan completed indeterminate fatty mass at the head of the pancreas. PAST MEDICAL HISTORY: See list. PAST SURGICAL HISTORY: See list. SOCIAL HISTORY: No illicit drug use. REVIEW OF SYSTEMS: CONSTITUTIONAL: Denies fever or chills. HEENT: Denies blurred vision, vision changes, or eye pain. Denies hemoptysis CARDIOVASCULAR: Denies chest pain or pressure. RESPIRATORY: No shortness of breath. GASTROINTESTINAL: Refer to HPI for pertinent findings HEMATOLOGIC: Denies bleeding disorders. GENITOURINARY: Denies any blood in urine. SKIN: Denies pruitis. Denies rash. PHYSICAL EXAM: VITAL SIGNS: Reviewed. GENERAL: Well-developed in no acute distress. HEENT: No sclera icterus. Extraocular movements grossly intact. Moist buccal mucosa. Head is atraumatic, normocephalic. ABDOMEN: Soft. Nondistended. Nontender. NEUROLOGIC: Alert and oriented. Cranial nerves II through XII grossly intact. ASSESSMENT: 1. Abdominal pain 2. Pancreatic mass PLAN: Dr. Butterfield spoke with patient at the bedside. No intervention or further workup recommended at this facility. Recommend outpatient evaluation by Dr. Rene Galindo at [facility] in [place]. Will have case making machine operator arrange consultation for patient. She may be discharged home from surgical standpoint. Nurse practitioner note has been reviewed by physician. Signing provider agrees with the documented findings, assessment, and plan of care. Past Medical History Past Medical History: No Reported History History of Any Multi-Drug Resistant Organisms: None Reported Past Surgical History: Appendectomy, Tubal Ligation Additional Past Surgical History / Comment(s): Kidney stone removal Past Psychological History: No Psychological Hx Reported Smoking Status: Current every day smoker Past Alcohol Use History: None Reported Past Drug Use History: None Reported Medications and Allergies Home Medications Medication Instructions Recorded Confirmed Type Ergocalciferol (Vitamin D2) 50,000 unit PO BEAVERS 04/09/18 08/25/19 History [Vitamin D2] Ibuprofen [Motrin Ib] 600 mg PO Q6H PRN 04/09/18 08/25/19 History Ciprofloxacin HCl [Cipro] 500 mg PO Q12HR 08/25/19 08/25/19 History Methocarbamol [Robaxin] 500 mg PO BID 08/25/19 08/25/19 History Pantoprazole Sodium [Protonix] 40 mg PO DAILY #30 tablet. 08/25/19 08/25/19 Rx Allergies Allergy/AdvReac Type Severity Reaction Status Date / Time cephalexin Allergy Anaphylaxis Verified 08/25/19 14:19 Penicillins Allergy Anaphylaxis Verified 08/25/19 14:19 Surgical - Exam Vital Signs Temp Pulse Resp BP Pulse Ox 97.9 F 85 16 153/87 95 08/25/19 14:12 08/25/19 14:12 08/25/19 14:12 08/25/19 14:12 08/25/19 14:12
--- NOTE | 2019-08-26 21:25 | P.DS ---
Providers Date of admission: 08/25/19 16:25 Expected date of discharge: 08/26/19 Attending physician: Scott Garner Consults: 08/25/19 17:05 Consult Physician Stat Consulting Provider: Jerald Butterfield Consult Reason/Comments: intractable abdominal pain, pancreatic mass Do you want consulting provider notified?: Yes [facility] [place] [facility] Course: Final diagnoses Abdominal pain Pancreatic mass with further OP workup rec at [facility]. Hospital course this a 38-year-old female admitted with left upper quadrant abdominal pain radiating to back. CT reporting that he mass at the head of the pancreas. Evaluated by surgery, recommending no intervention, further outpatient workup at , Dr. Galindo. Cleared by surgery for discharge. Patient is being discharged home in a stable condition with guarded prognosis. EXAM: PHYSICAL EXAM: GENERAL: alert & oriented X 3, no acute distress CARDIOVASCULAR: S1, S2 regular.. No murmur RESPIRATION: Breath sounds diminished in the bases. No rhonchi or crackles. No bronchial breathing. ABDOMEN: Soft, nondistended, nontender . No guarding. no masses palpable. Bowel sounds heard. NERVOUS SYSTEM: No focal deficits. The impression and plan of care has been dictated as directed. .: I performed a history and examination of this patient, discussed the same with the dictator. I agree with the dictator's note ,documented as a scribe. Any additional findings or plans will be noted. Patient Condition at Discharge: Stable Plan - Discharge Summary Discharge Rx Participant: Yes New Discharge Prescriptions: New Cyclobenzaprine [Flexeril] 10 mg PO TID PRN #20 tab PRN Reason: Spasms Continue Ibuprofen [Motrin Ib] 600 mg PO Q6H PRN PRN Reason: Pain Ergocalciferol (Vitamin D2) [Vitamin D2] 50,000 unit PO BEAVERS Methocarbamol [Robaxin] 500 mg PO BID Ciprofloxacin HCl [Cipro] 500 mg PO Q12HR Pantoprazole Sodium [Protonix] 40 mg PO DAILY #30 tablet.dr Discharge Medication List Ergocalciferol (Vitamin D2) [Vitamin D2] 50,000 unit PO BEAVERS 04/09/18 [History] Ibuprofen [Motrin Ib] 600 mg PO Q6H PRN 04/09/18 [History] Ciprofloxacin HCl [Cipro] 500 mg PO Q12HR 08/25/19 [History] Methocarbamol [Robaxin] 500 mg PO BID 08/25/19 [History] Pantoprazole Sodium [Protonix] 40 mg PO DAILY #30 tablet. 08/25/19 [Rx] Cyclobenzaprine [Flexeril] 10 mg PO TID PRN #20 tab 08/26/19 [Rx] Follow up Appointment(s)/Referral(s): Dr. Rene Galindo [facility]. Surg. [Other] - 1 Week Scott Garner MD [Primary Care Provider] - 3 Days (Patient to call Dr. Garner's office Friday morning to [facility] follow up appointment. The office has questions for the patient, and has requested to speak to patient. ) Patient Instructions/Handouts: Cyclobenzaprine (By mouth), Acute Abdominal Pain (DC) Activity/Diet/Wound Care/Special Instructions: MRI with Dr. Wright tomorrow Discharge Disposition: HOME SELF-CARE
[2019-08-29] MEDS ORDERED: ERGOCALCIFEROL 50,000 UNIT CAP PO SCH (09:00)
== END 2019-08-26 15:38 | disposition home or self-care (01) ==
LOC: EC 14:06 → 3NMEDONC 16:25
PROVIDERS: ADMIT Family Medicine; ATTEND Family Medicine
DX: R10.12 Left upper quadrant pain (principal); K86.9 Disease of pancreas, unspecified; R11.0 Nausea; M54.9 Dorsalgia, unspecified; Z90.49 Acquired absence of other specified parts of digestive tract; Z87.442 Personal history of urinary calculi; F17.200 Nicotine dependence, unspecified, uncomplicated; Z79.899 Other long term (current) drug therapy; Z79.1 Long term (current) use of non-steroidal anti-inflammatories (NSAID); Z88.0 Allergy status to penicillin; Z88.1 Allergy status to other antibiotic agents
CPT/HCPCS: 96376; 96375 ×3; 96374; 99284; 36415; 82105; 86301; G0378 ×2; J2060; J2270 ×2; J2360; J2405; J1885; C9113 ×2

== ENCOUNTER → 2019-10-26 | Outpatient (CLI) | payer BC ==
--- NOTE | 2019-10-27 09:21 | MM ---
Reason for exam: follow-up at short interval from prior study. Last mammogram was performed 6 months ago. History: Took hormonal contraceptives for 8 years beginning at age 29. Physical Findings: Nurse did not find any significant physical abnormalities on exam. MG Diagnostic Mammo RT w CAD CC and MLO view(s) were taken of the right breast. Prior study comparison: April 15, 2019, right breast MG 3d work up w/cad RT. April 15, 2019, bilateral MG 3d screening mammo w/cad. There are scattered fibroglandular densities. No suspicious calcificationsor masses are seen. No significant new findings when compared with previous films. These results were verbally communicated with the patient and result sheet given to the patient on 10/26/19. ASSESSMENT: Negative, BI-RAD 1 RECOMMENDATION: Follow-up diagnostic mammogram of both breasts in 6 months. Back on schedule.
== END | disposition home or self-care (01) ==
LOC: RADMAMWWP 13:30
PROVIDERS: ATTEND Obstetrics & Gynecology
DX: R92.8 Other abnormal and inconclusive findings on diagnostic imaging of breast (principal)
CPT/HCPCS: 77065

== ENCOUNTER → 2020-06-13 | Outpatient (CLI) | payer BC ==
--- NOTE | 2020-06-13 14:47 | MM ---
Reason for exam: follow-up at short interval from prior study. Last mammogram was performed 8 months ago. History: Took hormonal contraceptives for 8 years beginning at age 29. Physical Findings: Nurse did not find any significant physical abnormalities on exam. MG Diagnostic Mammo w CAD CHASITY Bilateral CC and MLO view(s) were taken. Prior study comparison: October 26, 2019, right breast MG diagnostic mammo RT w CAD. April 15, 2019, right breast MG 3d work up w/cad RT. There are scattered fibroglandular densities. There is no discrete abnormality including area of concern outer right CC view. No significant new findings when compared with previous films. These results were verbally communicated with the patient and result sheet given to the patient on 06/13/20. ASSESSMENT: Benign, BI-RAD 2 RECOMMENDATION: Routine screening mammogram of both breasts in 1 year.
== END | disposition home or self-care (01) ==
LOC: RADMAMWWP 14:13
PROVIDERS: ATTEND Obstetrics & Gynecology
DX: R92.8 Other abnormal and inconclusive findings on diagnostic imaging of breast (principal)
CPT/HCPCS: 77066

== ENCOUNTER 2022-03-09 00:51 | Observation (INO) | payer BC ==
--- NOTE | 2022-03-09 01:06 | ED ---
SOB HPI - General Chief Complaint: Shortness of Breath Stated Complaint: Shortness of breath, chest discomfort Time Seen by Provider: 03/09/22 01:05 Source: patient Mode of arrival: ambulatory Limitations: no limitations - Related Data Home Medications Medication Instructions Recorded Confirmed Ergocalciferol (Vitamin D2) 50,000 unit PO BEAVERS 04/09/18 08/25/19 [Vitamin D2] Ibuprofen [Motrin Ib] 600 mg PO Q6H PRN 04/09/18 08/25/19 Ciprofloxacin HCl [Cipro] 500 mg PO Q12HR 08/25/19 08/25/19 methocarbamoL [Robaxin] 500 mg PO BID 08/25/19 08/25/19 Previous Rx's Medication Instructions Recorded Pantoprazole Sodium [Protonix] 40 mg PO DAILY #30 tablet. 08/25/19 Cyclobenzaprine [Flexeril] 10 mg PO TID PRN #20 tab 08/26/19 Allergies Allergy/AdvReac Type Severity Reaction Status Date / Time cephalexin Allergy Anaphylaxis Verified 03/09/22 01:01 Penicillins Allergy Anaphylaxis Verified 03/09/22 01:01 Review of Systems ROS Statement: Those systems with pertinent positive or pertinent negative responses have been documented in the HPI. ROS Other: All systems not noted in ROS Statement are negative. Past Medical History Past Medical History: No Reported History Additional Past Medical History / Comment(s): COVID 03/22 History of Any Multi-Drug Resistant Organisms: None Reported Past Surgical History: Appendectomy, Tubal Ligation Additional Past Surgical History / Comment(s): Kidney stone removal Past Psychological History: No Psychological Hx Reported Smoking Status: Current every day smoker Past Alcohol Use History: None Reported Past Drug Use History: None Reported General Exam Limitations: no limitations Course Vital Signs 03/09/22 03/09/22 03/09/22 00:59 01:01 02:13 Temperature 97.3 F L Pulse Rate 41 L 45 L Pulse Rate [ 42 L Professional Wrestler ] Respiratory 18 16 Rate Blood Pressure 135/81 125/93 O2 Sat by Pulse 99 Oximetry 03/09/22 03/09/22 02:22 03:39 Temperature 97.1 F L Pulse Rate 46 L 56 L Pulse Rate [ Professional Wrestler ] Respiratory 16 16 Rate Blood Pressure 146/56 135/79 O2 Sat by Pulse 100 99 Oximetry Medical Decision Making - Lab Data Result diagrams: 03/09/22 01:10 04/09/22 01:10 Lab Results 03/09/22 03/09/22 03/09/22 Range/Units 01:10 01:10 01:10 WBC 4.3 (3.8-10.6) k/uL RBC 4.38 (3.80-5.40) m/uL Hgb 13.7 (11.4-16.0) gm/dL Hct 40.5 (34.0-46.0) % MCV 92.4 (80.0-100.0) fL MCH 31.3 (25.0-35.0) pg MCHC 33.8 (31.0-37.0) g/dL RDW 13.3 (11.5-15.5) % Plt Count 164 (150-450) k/uL MPV 7.9 Neutrophils % 51 % Lymphocytes % 39 % Monocytes % 6 % Eosinophils % 2 % Basophils % 0 % Neutrophils # 2.2 (1.3-7.7) k/uL Lymphocytes # 1.7 (1.0-4.8) k/uL Monocytes # 0.3 (0-1.0) k/uL Eosinophils # 0.1 (0-0.7) k/uL Basophils # 0.0 (0-0.2) k/uL PT 10.2 (9.0-12.0) sec INR 0.9 (<1.2) APTT 25.6 (22.0-30.0) sec Sodium 136 L (137-145) mmol/L Potassium 3.4 L (3.5-5.1) mmol/L Chloride 106 (98-107) mmol/L Carbon Dioxide 23 (22-30) mmol/L Anion Gap 7 mmol/L BUN 13 (7-17) mg/dL Creatinine 0.57 (0.52-1.04) mg/dL Est GFR (CKD-EPI)AfAm >90 (>60 ml/min/1.73 sqM) Est GFR (CKD-EPI)NonAf >90 (>60 ml/min/1.73 sqM) Glucose 98 (74-99) mg/dL Plasma Lactic Acid Pranav (0.7-2.0) mmol/L Calcium 8.8 (8.4-10.2) mg/dL Phosphorus 3.2 (2.5-4.5) mg/dL Magnesium 2.0 (1.6-2.3) mg/dL Total Bilirubin 0.6 (0.2-1.3) mg/dL AST 41 H (14-36) U/L ALT 44 H (4-34) U/L Alkaline Phosphatase 65 (38-126) U/L Troponin I (0.000-0.034) ng/mL NT-Pro-B Natriuret Pep pg/mL Total Protein 7.1 (6.3-8.2) g/dL Albumin 4.0 (3.5-5.0) g/dL 03/09/22 03/09/22 03/09/22 Range/Units 01:10 01:10 01:10 WBC (3.8-10.6) k/uL RBC (3.80-5.40) m/uL Hgb (11.4-16.0) gm/dL Hct (34.0-46.0) % MCV (80.0-100.0) fL MCH (25.0-35.0) pg MCHC (31.0-37.0) g/dL RDW (11.5-15.5) % Plt Count (150-450) k/uL MPV Neutrophils % % Lymphocytes % % Monocytes % % Eosinophils % % Basophils % % Neutrophils # (1.3-7.7) k/uL Lymphocytes # (1.0-4.8) k/uL Monocytes # (0-1.0) k/uL Eosinophils # (0-0.7) k/uL Basophils # (0-0.2) k/uL PT (9.0-12.0) sec INR (<1.2) APTT (22.0-30.0) sec Sodium (137-145) mmol/L Potassium (3.5-5.1) mmol/L Chloride (98-107) mmol/L Carbon Dioxide (22-30) mmol/L Anion Gap mmol/L BUN (7-17) mg/dL Creatinine (0.52-1.04) mg/dL Est GFR (CKD-EPI)AfAm (>60 ml/min/1.73 sqM) Est GFR (CKD-EPI)NonAf (>60 ml/min/1.73 sqM) Glucose (74-99) mg/dL Plasma Lactic Acid Pranav 1.2 (0.7-2.0) mmol/L Calcium (8.4-10.2) mg/dL Phosphorus (2.5-4.5) mg/dL Magnesium (1.6-2.3) mg/dL Total Bilirubin (0.2-1.3) mg/dL AST (14-36) U/L ALT (4-34) U/L Alkaline Phosphatase (38-126) U/L Troponin I <0.012 (0.000-0.034) ng/mL NT-Pro-B Natriuret Pep 102 pg/mL Total Protein (6.3-8.2) g/dL Albumin (3.5-5.0) g/dL - EKG Data -: EKG Interpreted by Me (EKG is sinus bradycardia 58 CA 168 QRS 94 QTC 422) Disposition Clinical Impression: Bradycardia, Dizziness Disposition: ADMITTED IP TO THIS HOSP Condition: Good Is patient prescribed a controlled substance at d/c from ED?: No Referrals: Scott Garner MD [Primary Care Provider] - 1-2 days
[2022-03-09] MEDS ORDERED: SODIUM CHLORIDE 0.9% 1,000 ML IV STA (01:10)
[2022-03-09 01:43] LABS: Basophils % (A) 0 %; Eosinophils # (A) 0.1 k/uL (0-0.7); Eosinophils % (A) 2 %; HCT 40.5 % (34.0-46.0); HGB 13.7 gm/dL (11.4-16.0); Lymphocytes # (A) 1.7 k/uL (1.0-4.8); Lymphocytes % (A) 39 %; MCH 31.3 pg (25.0-35.0); MCHC 33.8 g/dL (31.0-37.0); MCV 92.4 fL (80.0-100.0); Mean Platelet Volume 7.9; Monocytes # (A) 0.3 k/uL (0-1.0); Monocytes % (A) 6 %; Neutrophils # (A) 2.2 k/uL (1.3-7.7); Neutrophils % (A) 51 %; Platelet Count 164 k/uL (150-450); RBC 4.38 m/uL (3.80-5.40); RDW 13.3 % (11.5-15.5); WBC 4.3 k/uL (3.8-10.6)
[2022-03-09 01:49] LABS: INR 0.9 (<1.2); Partial Thromboplastin Time 25.6 sec (22.0-30.0); Prothrombin Time 10.2 sec (9.0-12.0)
--- NOTE | 2022-03-09 01:52 | CT ---
EXAMINATION TYPE: CT angio chest DATE OF EXAM: 03/09/2022 COMPARISON: None HISTORY: pe CT DLP: 510.4 mGycm Automated exposure control for dose reduction was used. CONTRAST: Performed with IV Contrast, patient injected with 75 mL of Isovue 370. Images obtained from the thoracic inlet to the diaphragm with IV contrast. There are Three-D postproc essed images. Heart size is fairly normal. There is no pericardial effusion. There is no pleural effusion. There ar e no hilar masses. There is no mediastinal adenopathy. Thoracic aorta appears intact. No aneurysm or dissection. There is normal contrast opacification of the pulmonary arteries. No filling defect. Uppe r abdominal soft tissues are intact. The lungs are clear of infiltrate. Thoracic vertebra have normal alignment. There is no compression fracture. Posterior elements are int act. Sternum is intact. IMPRESSION: Negative CT angiogram of the chest. No evidence of pulmonary embolism. No evidence of a pulmonary mas s.
[2022-03-09 02:07] LABS: ALT 44 U/L (4-34); AST 41 U/L (14-36); African American GFR (CKD) >90 (>60 ml/min/1.73 sqM); Alkaline Phosphatase 65 U/L (38-126); Anion Gap 7 mmol/L; Blood Urea Nitrogen 13 mg/dL (7-17); Calcium 8.8 mg/dL (8.4-10.2); Carbon Dioxide 23 mmol/L (22-30); Chloride 106 mmol/L (98-107); Glucose 98 mg/dL (74-99); Non-African American GFR(CKD) >90 (>60 ml/min/1.73 sqM); Phosphorus 3.2 mg/dL (2.5-4.5); Potassium 3.4 mmol/L (3.5-5.1); Sodium 136 mmol/L (137-145); Total Bilirubin 0.6 mg/dL (0.2-1.3); Total Protein 7.1 g/dL (6.3-8.2)
[2022-03-09] MEDS ORDERED: POTASSIUM CHLORIDE ER 20 MEQ TAB.ER PO STA (03:31)
[2022-03-09] MEDS ORDERED: SODIUM CHLORIDE 0.9% 1,000 ML IV SCH (04:00)
[2022-03-09 09:46] VITALS: BMI 33.9
--- NOTE | 2022-03-09 12:44 | P.CRDCN ---
History of Present Illness Consult date: 03/09/22 Reason for Consult (text): Bradycardia History of present illness: History of present illness: This is a 41-year-old female patient with no cardiac history, has not had any cardiac workup in the past. She states that yesterday she was feeling lightheaded and dizzy and in general "not right" she checked her blood pressure which was okay but she noted her heart rate was at 44 and her heart rate is normally running in the 60s. She denies any chest pain. She did have some shortness of breath. She also had some nausea. She does have history of Covid infection 2 weeks ago. She is a smoker of a half a pack per day for just 3-1/2 years and quit 3 weeks ago. No family history of coronary artery disease. EKG is sinus bradycardia with no acute ST changes. Telemetry is sinus bradycardia 45-56 bpm CBC unremarkable. INR 0.9. Potassium 3.4 and replaced otherwise electrolytes, renal function are normal. She has slight elevation in AST of 41 and ALT 44. Troponin is negative on 3 draws. ProBNP 102. CTA of the chest was negative, no pulmonary embolism. No pulmonary mass. Review Of Systems: Constitutional: No fever, no chills. No weakness, fatigue or lethargy. EENT: No headache. No dizziness. Lungs: No shortness of breath, cough, no sputum production. No wheezing. Cardiovascular: No chest pain, no lower extremity edema. No palpitations. No paroxysmal nocturnal dyspnea. No orthopnea. Reported lightheadedness or dizz iness. No syncopal episodes. Abdominal: No abdominal pain. No nausea, vomiting. No diarrhea. No constipation. No bloody or tarry stools.. No loss of appetite. Genitourinary: No dysuria.. No urinary retention. Musculoskeletal: No myalgias. No muscle weakness, no gait dysfunction, no frequent falls. No back pain. No neck pain. Integumentary: No wounds, no lesions. No rash or pruritus. No unusual bruising. Neurologic: No aphasia. No facial droop. No change in mentation. No head injury. No headache. No paralysis. No paresthesia. Psychiatric: No depression. No anxiety. Endocrine: No abnormal blood sugars. Physical examination: Gen: This is a 41-year-old female. She is resting in bed and appears to be comfortable and in no acute distress. HEENT: Head is atraumatic, normocephalic. Pupils equal, round. Sclerae is anicteric. NECK: Supple. No JVD. No lymphadenopathy. No thyromegaly. LUNGS: Clear to auscultation. No wheezes or rhonchi. No intercostal retractions. HEART: Regular rate and rhythm. No murmur. ABDOMEN: Soft. Bowel sounds are present. No masses. No tenderness. EXTREMITIES: No pedal edema. No calf tenderness. NEUROLOGICAL: Patient is awake, alert and oriented x3. Cranial nerves 2 through 12 are grossly intact. Assessment: Bradycardia of unclear etiology No previous cardiac history Plan: Obtain TSH and free T4 Obtain 2-D echocardiogram and Doppler study to assess cardiac structure and function Further recommendations to follow based upon clinical course If thyroid and echocardiogram are normal, patient may be discharged home from cardiology. Thank you kindly for this consultation. Nurse practitioner note has been reviewed, I agree with documented findings and plan of care. Patient was seen and examined. Past Medical History Past Medical History: No Reported History Additional Past Medical History / Comment(s): COVID 03/22 History of Any Multi-Drug Resistant Organisms: None Reported Past Surgical History: Appendectomy, Tubal Ligation Additional Past Surgical History / Comment(s): Kidney stone removal Past Anesthesia/Blood Transfusion Reactions: No Reported Reaction Past Psychological History: No Psychological Hx Reported Smoking Status: Current some day smoker Past Alcohol Use History: None Reported Past Drug Use History: None Reported Medications and Allergies Home Medications Medication Instructions Recorded Confirmed Type lamoTRIgine [LaMICtal] 50 mg PO DAILY 03/09/22 03/09/22 History lamoTRIgine [LaMICtal] 100 mg PO HS 03/09/22 03/09/22 History Allergies Allergy/AdvReac Type Severity Reaction Status Date / Time cephalexin Allergy Anaphylaxis Verified 03/09/22 11:46 Penicillins Allergy Anaphylaxis Verified 03/09/22 11:46 Physical Exam Vitals: Vital Signs Temp Pulse Pulse Resp BP BP Pulse Ox 03/09/22 04:40 97.7 F 47 L 17 144/77 98 03/09/22 03:39 56 L 16 135/79 99 03/09/22 02:22 97.1 F L 46 L 16 146/56 100 03/09/22 02:13 42 L 03/09/22 01:01 45 L 16 125/93 03/09/22 00:59 97.3 F L 41 L 18 135/81 99 Intake and Output 03/08/22 03/09/22 03/09/22 22:59 06:59 14:59 Other: Voiding Method Toilet # Voids 1 Weight 95.254 kg Results 03/09/22 01:10 03/09/22 01:10 Cardiac Enzymes 03/09/22 03/09/22 03/09/22 Range/Units 01:10 01:10 04:00 AST 41 H (14-36) U/L Troponin I <0.012 <0.012 (0.000-0.034) ng/mL Coagulation 03/09/22 Range/Units 01:10 PT 10.2 (9.0-12.0) sec APTT 25.6 (22.0-30.0) sec CBC 03/09/22 Range/Units 01:10 WBC 4.3 (3.8-10.6) k/uL RBC 4.38 (3.80-5.40) m/uL Hgb 13.7 (11.4-16.0) gm/dL Hct 40.5 (34.0-46.0) % Plt Count 164 (150-450) k/uL Comprehensive Metabolic Panel 03/09/22 Range/Units 01:10 Sodium 136 L (137-145) mmol/L Potassium 3.4 L (3.5-5.1) mmol/L Chloride 106 (98-107) mmol/L Carbon Dioxide 23 (22-30) mmol/L BUN 13 (7-17) mg/dL Creatinine 0.57 (0.52-1.04) mg/dL Glucose 98 (74-99) mg/dL Calcium 8.8 (8.4-10.2) mg/dL AST 41 H (14-36) U/L ALT 44 H (4-34) U/L Alkaline Phosphatase 65 (38-126) U/L Total Protein 7.1 (6.3-8.2) g/dL Albumin 4.0 (3.5-5.0) g/dL Current Medications Generic Name Dose Route Start Last Admin Trade Name Freq PRN Reason Stop Dose Admin Sodium Chloride 1,000 mls @ 20 mls/hr 03/09/22 04:00 03/09/22 03:55 Saline 0.9% IV 20 mls/hr .Q24H SAGE Administration Intake and Output 03/08/22 03/09/22 03/09/22 22:59 06:59 14:59 Other: Voiding Method Toilet # Voids 1 Weight 95.254 kg 03/09/22 01:10 03/09/22 01:10
[2022-03-09] MEDS ORDERED: MECLIZINE 25 MG TAB PO PRN (13:52)
--- NOTE | 2022-03-09 14:00 | ECHOF ---
Referral Reason:bradycardia MEASUREMENTS -------- HEIGHT: 167.6 cm WEIGHT: 95.3 kg BP: 144/77 RVIDd: 3.2 cm (< 3.3) IVSd: 1.1 cm (0.6 - 1.1) LVIDd: 4.2 cm (3.9 - 5.3) LVPWd: 1.1 cm (0.6 - 1.1) IVSs: 1.3 cm LVIDs: 3.4 cm LVPWs: 1.4 cm LA Diam: 3.3 cm (2.7 - 3.8) LAESV Index (A-L): 20.58 ml/m Ao Diam: 3.1 cm (2.0 - 3.7) AV Cusp: 1.8 cm (1.5 - 2.6) MV EXCURSION: 12.148 mm (> 18.000) MV EF SLOPE: 83 mm/s (70 - 150) EPSS: 0.8 cm MV E Jose: 1.14 m/s MV DecT: 274 ms MV A Jose: 0.92 m/s MV E/A Ratio: 1.24 RAP: 5.00 mmHg RVSP: 22.27 mmHg FINDINGS -------- Resting bradycardia (HR<60bpm). This was a technically good study. The left ventricular size is normal. There is borderline concentric left ventricular hypertrophy. Overall left ventricular systolic function is normal with, an EF between 55 - 60 %. The right ventricle is normal in size. Normal LA size by volume 22+/-6 ml/m2. The right atrium is normal in size. Interatrial and interventricular septum intact. Trace amount of aortic regurgitation. There is trace mitral regurgitation. Mild tricuspid regurgitation present. Right ventricular systolic pressure is normal at < 35 mmHg. Trace/mild (physiologic) pulmonic regurgitation. The aortic root size is normal. Normal inferior vena cava with normal inspiratory collapse consistent with estimated right atrial pre ssure of 5 mmHg. There is no pericardial effusion. CONCLUSIONS -------- 1. The left ventricular size is normal. 2. There is borderline concentric left ventricular hypertrophy. 3. Overall left ventricular systolic function is normal with, an EF between 55 - 60 %. 4. Trace amount of aortic regurgitation. 5. There is trace mitral regurgitation. 6. Mild tricuspid regurgitation present. 7. Trace/mild (physiologic) pulmonic regurgitation. 8. There is no pericardial effusion. ENAMEL SPRAYER: Lisa Nuñez RDCS
--- NOTE | 2022-03-09 14:08 | HP ---
HISTORY AND PHYSICAL HISTORY OF PRESENT ILLNESS: This is a 41-year-old white female became lightheaded and dizzy 2 weeks ago, not right, feeling not right and dizzy for last 2 weeks after she had COVID. She had short of breath with exertion. She noticed her heart rate was low at home. Normally runs in the 60s down to 40s. She had some shortness of breath. She came into the hospital due to dizziness, shortness of breath, most likely secondary to COVID, some possible bradycardia. Cardiology examined her. Telemetry is 45-56, potassium 3.4, INR 0.9. Troponins negative x3. Mild liver enzyme elevation. BNP is 102. CT head negative. REVIEW OF SYMPTOMS: 14 point review of systems otherwise negative. MEDICATIONS: Lamictal 100 in the morning, 50 at night. PHYSICAL EXAM: She is in no acute distress. Vital signs reviewed. CARDIOVASCULAR S1, S2. LUNGS: Clear. GI soft. HEMATOLOGY: Negative Homans. PSYCH: Fair mood and affect. Cranial nerves are intact. Cardiology ordered echo and thyroid. If normal, we are going to send her home. IMPRESSION: Suspected dizziness, bradycardia, shortness of breath secondary to COVID. We will put on Antivert trial at 12.5-25 mg every 8 hours, and Symbicort inhaler 160/4.5 two puffs b.i.d. and sent home if she is cleared from bradycardia and cardiac workup. STAR / ABEL: [id number] /
[2022-03-09 14:25] VITALS: BP 145/71; PULSE 39; RESP 12; TEMP 97.7
[2022-03-09] MEDS ORDERED: SYMBICORT 160-4.5 MCG INHALER INHALATION SCH (20:00)
[2022-03-09] MEDS ORDERED: lamoTRIgine 100 MG TAB PO SCH (21:00)
[2022-03-10] MEDS ORDERED: lamoTRIgine 25 MG TAB PO SCH (09:00)
== END 2022-03-09 16:55 | disposition home or self-care (01) ==
LOC: EC 00:51 → 6NMEDSUR 03:47 → INTOOBSV 03:47 → 6NMEDSUR 04:02
PROVIDERS: ADMIT Family Medicine; ATTEND Family Medicine
DX: R06.02 Shortness of breath (principal); R00.1 Bradycardia, unspecified; R42 Dizziness and giddiness; R11.0 Nausea; R74.01 Elevation of levels of liver transaminase levels; R74.8 Abnormal levels of other serum enzymes; Z86.16 Personal history of COVID-19; Z79.899 Other long term (current) drug therapy; Z88.0 Allergy status to penicillin; Z88.1 Allergy status to other antibiotic agents; Z87.442 Personal history of urinary calculi; Z87.891 Personal history of nicotine dependence
CPT/HCPCS: 96360; 99285; 36415; 93005; 93306; 83880; 80053; 84443; 82533; 83605; 83735; 84100; 84484; 85025; 85610; 85730; 86038; 71275; G0378; Q9967